=== PATIENT | female | born 1945 | race Caucasian/White ===

== ENCOUNTER → 2019-02-22 | Outpatient (CLI) | payer MEDICARE ==
[~2019-02-22] MED LIST: ASPIRIN ADULT L81 M1 PO; CEFTIN500 MG PO; CO Q-1010 M1 PO; CO Q-1050 MG PO; COUMADIN4 M1 PO; FISH OIL 10001000 MG PO; KEFLEX500 MG PO; LANTUS100 U/ML SC; NEXIUM20 MG PO; PRAVASTATIN SOD40 MG PO; PRILOSEC20 MG PO; PROGRAF1 MG PO; SYNTHROID0.075 MG PO; ULTRAM50 MG PO; VICO10300 PO; VITAMIN E PO; ZOFRAN ODT4 MG SL; [UNRECOGNIZED DRUG - OTHER]; [UNRECOGNIZED DRUG - REMARK]
== END | disposition home or self-care (01) ==
LOC: WOUNDCARE 07:59
DX: E11.621 Type 2 diabetes mellitus with foot ulcer (principal); L97.512 Non-pressure chronic ulcer of other part of right foot with fat layer exposed; E11.51 Type 2 diabetes mellitus with diabetic peripheral angiopathy without gangrene; E11.22 Type 2 diabetes mellitus with diabetic chronic kidney disease; N18.9 Chronic kidney disease, unspecified; I13.10 Hypertensive heart and chronic kidney disease without heart failure, with stage 1 through stage 4 chronic kidney disease, or unspecified chronic kidney disease; Z94.4 Liver transplant status; Z95.1 Presence of aortocoronary bypass graft; Z89.411 Acquired absence of right great toe; Z89.421 Acquired absence of other right toe(s)

== ENCOUNTER → 2019-03-22 | Outpatient (CLI) | payer MEDICARE | END | disposition home or self-care (01) | LOC: WOUNDCARE 00:49 | DX: E11.621 Type 2 diabetes mellitus with foot ulcer (principal); L97.512 Non-pressure chronic ulcer of other part of right foot with fat layer exposed; E11.51 Type 2 diabetes mellitus with diabetic peripheral angiopathy without gangrene; E11.22 Type 2 diabetes mellitus with diabetic chronic kidney disease; I12.9 Hypertensive chronic kidney disease with stage 1 through stage 4 chronic kidney disease, or unspecified chronic kidney disease; N18.9 Chronic kidney disease, unspecified; Z94.4 Liver transplant status; Z86.73 Personal history of transient ischemic attack (TIA), and cerebral infarction without residual deficits; Z89.411 Acquired absence of right great toe; Z89.421 Acquired absence of other right toe(s) ==

== ENCOUNTER → 2019-03-29 | Outpatient (CLI) | payer MEDICARE | END | disposition home or self-care (01) | LOC: WOUNDCARE 00:37 | DX: E11.621 Type 2 diabetes mellitus with foot ulcer (principal); L97.512 Non-pressure chronic ulcer of other part of right foot with fat layer exposed; E11.51 Type 2 diabetes mellitus with diabetic peripheral angiopathy without gangrene; E11.22 Type 2 diabetes mellitus with diabetic chronic kidney disease; I12.9 Hypertensive chronic kidney disease with stage 1 through stage 4 chronic kidney disease, or unspecified chronic kidney disease; N18.9 Chronic kidney disease, unspecified; Z94.4 Liver transplant status; Z86.73 Personal history of transient ischemic attack (TIA), and cerebral infarction without residual deficits ==

== ENCOUNTER → 2019-04-18 | Outpatient (CLI) | payer MEDICARE | END | disposition home or self-care (01) | LOC: WOUNDCARE 09:32 | DX: E11.621 Type 2 diabetes mellitus with foot ulcer (principal); L97.512 Non-pressure chronic ulcer of other part of right foot with fat layer exposed; E11.51 Type 2 diabetes mellitus with diabetic peripheral angiopathy without gangrene; E11.22 Type 2 diabetes mellitus with diabetic chronic kidney disease; I12.9 Hypertensive chronic kidney disease with stage 1 through stage 4 chronic kidney disease, or unspecified chronic kidney disease; N18.9 Chronic kidney disease, unspecified; Z86.73 Personal history of transient ischemic attack (TIA), and cerebral infarction without residual deficits; Z89.411 Acquired absence of right great toe; Z94.4 Liver transplant status; Z89.421 Acquired absence of other right toe(s) ==

== ENCOUNTER → 2019-04-19 | Outpatient (CLI) | payer MEDICARE ==
[2019-04-19 16:44] LABS: BASO # 0.1 10*3/uL (0.0-0.1); BASO % 0.5 % (0.0-1.0); EOS # 0.6 10*3/uL (0.0-0.4); EOS % 5.2 % (1.0-4.0); HEMATOCRIT 33.9 % (37.0-47.0); HEMOGLOBIN 10.8 g/dl (12.0-16.0); LYMPH % 26.6 % (27.0-41.0); MEAN CELL VOLUME 95.8 fl (81.0-99.0); MEAN CORPUSCULAR HGB 30.5 pg (27.0-31.0); MEAN CORPUSCULAR HGB CONC 31.9 g/dl (33.0-37.0); MEAN PLATELET VOLUME 11.1 fl (9.6-12.3); MONO # 0.5 10*3/uL (0.1-1.0); MONO % 4.2 % (3.0-9.0); NEUT # 7.2 10*3/uL (2.3-7.9); PLATELET COUNT AUTOMATED 340 10*3/uL (130-400); RED BLOOD COUNT 3.54 10*6/uL (4.10-5.10); RED CELL DISTRI WIDTH 12.9 % (0-14.5); WHITE BLOOD COUNT 11.4 10*3/uL (4.8-10.8)
[2019-04-19 17:05] LABS: ALBUMIN 3.3 gm/dl (3.1-4.5); CREATININE 2.96 mg/dL (0.55-1.02); POTASSIUM 5.8 mmol/L (3.5-5.1); TOTAL PROTEIN 7.2 gm/dL (6.4-8.2)
== END | disposition home or self-care (01) ==
LOC: LAB 15:12
PROVIDERS: Specialist
DX: E83.40 Disorders of magnesium metabolism, unspecified (principal); Z94.4 Liver transplant status; Z79.899 Other long term (current) drug therapy

== ENCOUNTER → 2019-04-26 | Outpatient (CLI) | payer MEDICARE | END | disposition home or self-care (01) | LOC: WOUNDCARE 08:26 | DX: E11.621 Type 2 diabetes mellitus with foot ulcer (principal); L97.512 Non-pressure chronic ulcer of other part of right foot with fat layer exposed; E11.51 Type 2 diabetes mellitus with diabetic peripheral angiopathy without gangrene; E11.22 Type 2 diabetes mellitus with diabetic chronic kidney disease; I12.9 Hypertensive chronic kidney disease with stage 1 through stage 4 chronic kidney disease, or unspecified chronic kidney disease; N18.9 Chronic kidney disease, unspecified; Z86.73 Personal history of transient ischemic attack (TIA), and cerebral infarction without residual deficits; Z89.411 Acquired absence of right great toe; Z94.4 Liver transplant status; Z89.421 Acquired absence of other right toe(s) ==

== ENCOUNTER → 2019-05-25 | Outpatient (CLI) | payer MEDICARE ==
[2019-05-25 10:22] LABS: URINE CREATININE RANDOM 72.8 mg/dL
[2019-05-25 10:42] LABS: ALBUMIN 3.4 gm/dl (3.1-4.5); CREATININE 2.09 mg/dL (0.55-1.02); PHOSPHOROUS 3.4 mg/dL (2.5-4.9); POTASSIUM 4.9 mmol/L (3.5-5.1)
[2019-05-25 11:39] LABS: FERRITIN 51.2 ng/mL (10.0-291.0); PTH INTACT 171.2 pg/mL (18.5-88.0); VITAMIN D, 25-HYDROXY 18.7 ng/mL (30-100)
[2019-05-26 11:06] LABS: CREATININE,URINE 67.6 mg/dL (Not Estab.); MICRO ALBUMIN/CRE RATIO 1661.7 (0.0-30.0)
== END | disposition home or self-care (01) ==
LOC: LAB 09:33
PROVIDERS: Internal Medicine Nephrology
DX: E78.5 Hyperlipidemia, unspecified (principal); N18.4 Chronic kidney disease, stage 4 (severe)

== ENCOUNTER → 2019-06-06 | Outpatient (CLI) | payer MEDICARE | END | disposition home or self-care (01) | LOC: US 01:09 | DX: I12.9 Hypertensive chronic kidney disease with stage 1 through stage 4 chronic kidney disease, or unspecified chronic kidney disease (principal); N18.4 Chronic kidney disease, stage 4 (severe); E11.22 Type 2 diabetes mellitus with diabetic chronic kidney disease; E78.5 Hyperlipidemia, unspecified ==

== ENCOUNTER → 2019-08-24 | Outpatient (CLI) | payer MEDICARE ==
[2019-08-24 17:21] LABS: ALBUMIN 3.1 gm/dl (3.1-4.5); CREATININE 2.48 mg/dL (0.55-1.02); POTASSIUM 4.1 mmol/L (3.5-5.1); TOTAL PROTEIN 7.2 gm/dL (6.4-8.2)
[2019-08-24 17:27] LABS: THYROID STIM HORMONE (HS) 0.564 uIU/ml (0.358-4.75)
[2019-08-25 12:06] LABS: CREATININE,URINE 110.4 mg/dL (Not Estab.)
== END | disposition home or self-care (01) ==
LOC: LAB 16:01
PROVIDERS: Internal Medicine Endocrinology, Diabetes & Metabolism
DX: E78.2 Mixed hyperlipidemia (principal); E03.9 Hypothyroidism, unspecified; E11.65 Type 2 diabetes mellitus with hyperglycemia

== ENCOUNTER → 2019-10-19 | Outpatient (CLI) | payer MEDICARE ==
[2019-10-19 12:32] LABS: BASO # 0.1 10*3/uL (0.0-0.1); BASO % 0.7 % (0.0-1.0); EOS # 0.5 10*3/uL (0.0-0.4); EOS % 5.5 % (1.0-4.0); HEMATOCRIT 41.5 % (37.0-47.0); HEMOGLOBIN 13.4 g/dl (12.0-16.0); LYMPH # 3.1 10*3/uL (1.3-4.4); LYMPH % 32.2 % (27.0-41.0); MEAN CELL VOLUME 89.2 fl (81.0-99.0); MEAN CORPUSCULAR HGB 28.8 pg (27.0-31.0); MEAN CORPUSCULAR HGB CONC 32.3 g/dl (33.0-37.0); MEAN PLATELET VOLUME 10.7 fl (9.6-12.3); MONO # 0.5 10*3/uL (0.1-1.0); MONO % 4.9 % (3.0-9.0); NEUT # 5.3 10*3/uL (2.3-7.9); NEUT % 56.3 % (47.0-73.0); PLATELET COUNT AUTOMATED 304 10*3/uL (130-400); RED BLOOD COUNT 4.65 10*6/uL (4.10-5.10); RED CELL DISTRI WIDTH 13.3 % (0-14.5); WHITE BLOOD COUNT 9.5 10*3/uL (4.8-10.8)
[2019-10-19 12:59] LABS: ALBUMIN 3.1 gm/dl (3.1-4.5); CREATININE 2.15 mg/dL (0.55-1.02); POTASSIUM 4.2 mmol/L (3.5-5.1); TOTAL PROTEIN 7.2 gm/dL (6.4-8.2)
== END | disposition home or self-care (01) ==
LOC: LAB 11:40
PROVIDERS: Specialist
DX: E83.40 Disorders of magnesium metabolism, unspecified (principal); Z79.899 Other long term (current) drug therapy

== ENCOUNTER 2019-11-05 11:02 | Emergency (ER) | payer MEDICARE ==
[~2019-11-05] VITALS: Ht 160 cm; Wt 79.8 kg
== END 2019-11-05 14:56 | disposition home or self-care (01) ==
LOC: ED 11:02
DX: M79.671 Pain in right foot (principal); R20.0 Anesthesia of skin; E11.43 Type 2 diabetes mellitus with diabetic autonomic (poly)neuropathy; M86.9 Osteomyelitis, unspecified; I10 Essential (primary) hypertension; K21.9 Gastro-esophageal reflux disease without esophagitis; I25.10 Atherosclerotic heart disease of native coronary artery without angina pectoris; Z79.899 Other long term (current) drug therapy; Z79.82 Long term (current) use of aspirin; Z91.041 Radiographic dye allergy status; Z79.4 Long term (current) use of insulin; Z79.01 Long term (current) use of anticoagulants; X58.XXXA Exposure to other specified factors, initial encounter; Y93.89 Activity, other specified; Y92.89 Other specified places as the place of occurrence of the external cause; Y99.8 Other external cause status

== ENCOUNTER → 2019-11-25 | Outpatient (CLI) | payer MEDICARE ==
[2019-11-25 12:43] LABS: BASO # 0.1 10*3/uL (0.0-0.1); BASO % 0.6 % (0.0-1.0); EOS # 0.4 10*3/uL (0.0-0.4); EOS % 5.3 % (1.0-4.0); HEMATOCRIT 37.1 % (37.0-47.0); HEMOGLOBIN 11.8 g/dl (12.0-16.0); LYMPH # 2.6 10*3/uL (1.3-4.4); LYMPH % 32.8 % (27.0-41.0); MEAN CELL VOLUME 92.3 fl (81.0-99.0); MEAN CORPUSCULAR HGB 29.4 pg (27.0-31.0); MEAN CORPUSCULAR HGB CONC 31.8 g/dl (33.0-37.0); MONO # 0.5 10*3/uL (0.1-1.0); MONO % 5.6 % (3.0-9.0); NEUT # 4.4 10*3/uL (2.3-7.9); NEUT % 55.1 % (47.0-73.0); PLATELET COUNT AUTOMATED 271 10*3/uL (130-400); RED BLOOD COUNT 4.02 10*6/uL (4.10-5.10); RED CELL DISTRI WIDTH 13.2 % (0-14.5)
[2019-11-25 13:02] LABS: CREATININE 2.51 mg/dL (0.55-1.02); TOTAL PROTEIN 6.5 gm/dL (6.4-8.2)
== END | disposition home or self-care (01) ==
LOC: LAB 11:48
PROVIDERS: Specialist
DX: E83.40 Disorders of magnesium metabolism, unspecified (principal); Z94.4 Liver transplant status; Z79.899 Other long term (current) drug therapy; N18.4 Chronic kidney disease, stage 4 (severe)

== ENCOUNTER → 2019-12-23 | Outpatient (CLI) | payer MEDICARE ==
[~2019-12-23] MED LIST changes: +PREDNISONE20 M1 PO; +PROVENTIL HFA6.7 GM INH; +VIBRAMYCIN100 MG PO
[2019-12-23 16:06] LABS: BASO # 0.1 10*3/uL (0.0-0.1); BASO % 0.6 % (0.0-1.0); EOS % 11.4 % (1.0-4.0); HEMATOCRIT 40.7 % (37.0-47.0); HEMOGLOBIN 13.1 g/dl (12.0-16.0); LYMPH # 2.9 10*3/uL (1.3-4.4); MEAN CELL VOLUME 93.6 fl (81.0-99.0); MEAN CORPUSCULAR HGB 30.1 pg (27.0-31.0); MEAN CORPUSCULAR HGB CONC 32.2 g/dl (33.0-37.0); MEAN PLATELET VOLUME 10.8 fl (9.6-12.3); MONO # 0.5 10*3/uL (0.1-1.0); NEUT # 4.1 10*3/uL (2.3-7.9); NEUT % 47.5 % (47.0-73.0); PLATELET COUNT AUTOMATED 246 10*3/uL (130-400); RED BLOOD COUNT 4.35 10*6/uL (4.10-5.10); RED CELL DISTRI WIDTH 13.1 % (0-14.5); WHITE BLOOD COUNT 8.5 10*3/uL (4.8-10.8)
[2019-12-23 16:17] LABS: CREATININE 2.85 mg/dL (0.55-1.02); POTASSIUM 4.2 mmol/L (3.5-5.1)
[2019-12-23 16:21] LABS: ALBUMIN 3.2 gm/dl (3.1-4.5)
[2019-12-23 16:26] LABS: BILIRUBIN NEGATIVE (NEGATIVE); BLOOD 1+ (NEGATIVE); CLARITY CLEAR (CLEAR); COLOR YELLOW (YELLOW); GLUCOSE 1+ (NEGATIVE); KETONE NEGATIVE (NEGATIVE); LEUKO ESTERASE NEGATIVE (NEGATIVE); NITRITE NEGATIVE (NEGATIVE); PH 5.5 (5.0-9.0); SPECIFIC GRAVITY 1.025 (1.005-1.030); UROBILINOGEN 0.2 E.U./dl (0.2-1.0)
[2019-12-23 16:34] LABS: BACTERIA TRACE
[2019-12-23 16:35] LABS: FINE GRANULAR CAST 0-2; HYALINE CAST 0-2
== END | disposition home or self-care (01) ==
LOC: LAB 15:39
PROVIDERS: Internal Medicine Nephrology; Specialist
DX: E11.22 Type 2 diabetes mellitus with diabetic chronic kidney disease (principal); N18.4 Chronic kidney disease, stage 4 (severe); E87.5 Hyperkalemia; E78.2 Mixed hyperlipidemia; Z94.4 Liver transplant status

== ENCOUNTER 2019-12-25 15:00 | Emergency (ER) | payer MEDICARE ==
[~2019-12-25] VITALS: Ht 160 cm; Wt 80.7 kg
[~2019-12-25 15:00] MED LIST changes: -PREDNISONE20 M1 PO; -PROVENTIL HFA6.7 GM INH; -VIBRAMYCIN100 MG PO
[2019-12-25] MEDS ORDERED: PROVENTIL HFA6.7 GM INH (17:34)
[2019-12-25] MEDS ORDERED: PREDNISONE20 M1 PO (17:34)
[2019-12-25] MEDS ORDERED: VIBRAMYCIN100 MG PO (17:34)
== END 2019-12-25 17:47 | disposition home or self-care (01) ==
LOC: ED 15:00
DX: J32.9 Chronic sinusitis, unspecified (principal); J40 Bronchitis, not specified as acute or chronic; R11.2 Nausea with vomiting, unspecified; R19.7 Diarrhea, unspecified; I10 Essential (primary) hypertension; K21.9 Gastro-esophageal reflux disease without esophagitis; I25.10 Atherosclerotic heart disease of native coronary artery without angina pectoris; E11.40 Type 2 diabetes mellitus with diabetic neuropathy, unspecified; Z86.73 Personal history of transient ischemic attack (TIA), and cerebral infarction without residual deficits; Z94.4 Liver transplant status; Z91.041 Radiographic dye allergy status; Z79.899 Other long term (current) drug therapy; Z79.01 Long term (current) use of anticoagulants; Z79.82 Long term (current) use of aspirin; Z98.61 Coronary angioplasty status

== ENCOUNTER → 2020-01-02 | Outpatient (CLI) | payer MEDICARE ==
[~2020-01-02] MED LIST changes: +PREDNISONE20 M1 PO; +PROVENTIL HFA6.7 GM INH; +VIBRAMYCIN100 MG PO
[2020-01-02 14:05] LABS: CREATININE 2.51 mg/dL (0.55-1.02); POTASSIUM 4.3 mmol/L (3.5-5.1)
== END | disposition home or self-care (01) ==
LOC: LAB 13:05
PROVIDERS: Internal Medicine Nephrology
DX: N18.4 Chronic kidney disease, stage 4 (severe) (principal)

== ENCOUNTER → 2020-01-10 | Outpatient (CLI) | payer MEDICARE ==
[2020-01-10 09:12] LABS: HEMATOCRIT 34.2 % (37.0-47.0); HEMOGLOBIN 10.9 g/dl (12.0-16.0)
[2020-01-10 09:53] LABS: POTASSIUM 4.5 mmol/L (3.5-5.1)
[2020-01-10 10:03] LABS: CREATININE 2.25 mg/dL (0.55-1.02)
== END | disposition home or self-care (01) ==
LOC: LAB 08:01
PROVIDERS: Internal Medicine Nephrology
DX: N18.4 Chronic kidney disease, stage 4 (severe) (principal); E78.5 Hyperlipidemia, unspecified

== ENCOUNTER 2020-04-23 18:15 | Emergency (ER) | payer MEDICARE ==
[~2020-04-23] VITALS: Ht 160 cm; Wt 80.7 kg
[2020-04-23] MEDS ORDERED: PREDNISONE20 M1 PO (19:31)
[2020-04-23] MEDS ORDERED: KENALOG 0.5% CR15 GM T (19:31)
== END 2020-04-23 19:50 | disposition home or self-care (01) ==
LOC: ED 18:15
DX: L25.9 Unspecified contact dermatitis, unspecified cause (principal); E11.9 Type 2 diabetes mellitus without complications; I10 Essential (primary) hypertension; I25.10 Atherosclerotic heart disease of native coronary artery without angina pectoris; Z91.041 Radiographic dye allergy status; Z79.899 Other long term (current) drug therapy; Z79.82 Long term (current) use of aspirin; Z79.01 Long term (current) use of anticoagulants

== ENCOUNTER → 2020-04-26 | Outpatient (CLI) | payer MEDICARE ==
[~2020-04-26] MED LIST changes: +DOXYCYCLINE100 M3 PO; +KENALOG 0.5% CR15 GM T
[2020-04-26 15:09] LABS: BASO % 0.1 % (0.0-1.0); HEMATOCRIT 37.1 % (37.0-47.0); LYMPH # 2.3 10*3/uL (1.3-4.4); LYMPH % 14.6 % (27.0-41.0); MEAN CELL VOLUME 92.1 fl (81.0-99.0); MEAN CORPUSCULAR HGB 29.8 pg (27.0-31.0); MEAN CORPUSCULAR HGB CONC 32.3 g/dl (33.0-37.0); MEAN PLATELET VOLUME 11.6 fl (9.6-12.3); MONO # 0.7 10*3/uL (0.1-1.0); MONO % 4.3 % (3.0-9.0); NEUT # 12.8 10*3/uL (2.3-7.9); PLATELET COUNT AUTOMATED 264 10*3/uL (130-400); RED BLOOD COUNT 4.03 10*6/uL (4.10-5.10); RED CELL DISTRI WIDTH 13.2 % (0-14.5); WHITE BLOOD COUNT 15.9 10*3/uL (4.8-10.8)
[2020-04-26 15:36] LABS: ALBUMIN 3.4 gm/dl (3.1-4.5); CREATININE 3.14 mg/dL (0.55-1.02); POTASSIUM 4.3 mmol/L (3.5-5.1); TOTAL PROTEIN 7.5 gm/dL (6.4-8.2)
== END | disposition home or self-care (01) ==
LOC: LAB 14:38
PROVIDERS: Specialist
DX: Z94.4 Liver transplant status (principal); Z79.899 Other long term (current) drug therapy

== ENCOUNTER 2020-04-29 21:53 | Emergency (ER) | payer MEDICARE ==
[~2020-04-29] VITALS: Ht 161.2 cm; Wt 80.7 kg
[~2020-04-29 21:53] MED LIST changes: -DOXYCYCLINE100 M3 PO
[2020-04-29] MEDS ORDERED: DOXYCYCLINE100 M3 PO (22:10)
== END 2020-04-29 23:34 | disposition home or self-care (01) ==
LOC: ED 21:53
DX: L02.01 Cutaneous abscess of face (principal); I10 Essential (primary) hypertension; E11.9 Type 2 diabetes mellitus without complications; K21.9 Gastro-esophageal reflux disease without esophagitis; I25.10 Atherosclerotic heart disease of native coronary artery without angina pectoris; Z79.899 Other long term (current) drug therapy; Z79.4 Long term (current) use of insulin; Z79.82 Long term (current) use of aspirin

== ENCOUNTER → 2020-05-11 | Outpatient (CLI) | payer MEDICARE ==
[~2020-05-11] MED LIST changes: +DOXYCYCLINE100 M3 PO
[2020-05-11 13:24] LABS: BASO # 0.1 10*3/uL (0.0-0.1); BASO % 0.6 % (0.0-1.0); EOS # 0.6 10*3/uL (0.0-0.4); EOS % 6.3 % (1.0-4.0); HEMATOCRIT 34.2 % (37.0-47.0); LYMPH # 2.7 10*3/uL (1.3-4.4); LYMPH % 29.8 % (27.0-41.0); MEAN CELL VOLUME 94.5 fl (81.0-99.0); MEAN CORPUSCULAR HGB 29.8 pg (27.0-31.0); MEAN CORPUSCULAR HGB CONC 31.6 g/dl (33.0-37.0); MEAN PLATELET VOLUME 11.2 fl (9.6-12.3); MONO # 0.4 10*3/uL (0.1-1.0); MONO % 4.9 % (3.0-9.0); NEUT # 5.1 10*3/uL (2.3-7.9); NEUT % 57.6 % (47.0-73.0); PLATELET COUNT AUTOMATED 262 10*3/uL (130-400); RED BLOOD COUNT 3.62 10*6/uL (4.10-5.10); RED CELL DISTRI WIDTH 13.9 % (0-14.5); WHITE BLOOD COUNT 8.9 10*3/uL (4.8-10.8)
[2020-05-11 13:48] LABS: ALBUMIN 2.9 gm/dl (3.1-4.5); CREATININE 3.04 mg/dL (0.55-1.02); INTERNATIONAL NORM RATIO 1.1 (2.0-3.5)
== END | disposition home or self-care (01) ==
LOC: LAB 12:52
PROVIDERS: Specialist
DX: Z94.4 Liver transplant status (principal)

== ENCOUNTER → 2020-05-21 | Outpatient (CLI) | payer MEDICARE ==
[2020-05-21 11:50] LABS: BASO % 0.5 % (0.0-1.0); EOS # 0.7 10*3/uL (0.0-0.4); HEMATOCRIT 35.5 % (37.0-47.0); LYMPH # 2.7 10*3/uL (1.3-4.4); LYMPH % 36.5 % (27.0-41.0); MEAN CELL VOLUME 93.2 fl (81.0-99.0); MEAN CORPUSCULAR HGB 29.4 pg (27.0-31.0); MEAN CORPUSCULAR HGB CONC 31.5 g/dl (33.0-37.0); MEAN PLATELET VOLUME 11.5 fl (9.6-12.3); MONO # 0.4 10*3/uL (0.1-1.0); MONO % 5.8 % (3.0-9.0); NEUT # 3.6 10*3/uL (2.3-7.9); NEUT % 47.8 % (47.0-73.0); PLATELET COUNT AUTOMATED 249 10*3/uL (130-400); RED BLOOD COUNT 3.81 10*6/uL (4.10-5.10); RED CELL DISTRI WIDTH 13.6 % (0-14.5); WHITE BLOOD COUNT 7.4 10*3/uL (4.8-10.8)
[2020-05-21 12:11] LABS: ALBUMIN 3.2 gm/dl (3.1-4.5); CREATININE 3.07 mg/dL (0.55-1.02); POTASSIUM 4.7 mmol/L (3.5-5.1)
== END | disposition home or self-care (01) ==
LOC: LAB 11:14
PROVIDERS: Internal Medicine Nephrology
DX: N18.4 Chronic kidney disease, stage 4 (severe) (principal); E61.1 Iron deficiency

== ENCOUNTER → 2020-06-07 | Outpatient (CLI) | payer MEDICARE ==
[2020-06-07 16:08] LABS: ALBUMIN 3.2 gm/dl (3.1-4.5); CREATININE 2.68 mg/dL (0.55-1.02); POTASSIUM 4.3 mmol/L (3.5-5.1)
== END | disposition home or self-care (01) ==
LOC: LAB 14:57
PROVIDERS: Internal Medicine Nephrology
DX: N18.4 Chronic kidney disease, stage 4 (severe) (principal)

== ENCOUNTER → 2020-06-25 | Outpatient (CLI) | payer MEDICARE ==
[2020-06-25 11:15] LABS: CREATININE 3.07 mg/dL (0.55-1.02); POTASSIUM 4.4 mmol/L (3.5-5.1)
== END | disposition home or self-care (01) ==
LOC: LAB 10:22
PROVIDERS: Internal Medicine Nephrology
DX: N18.4 Chronic kidney disease, stage 4 (severe) (principal)

== ENCOUNTER → 2020-07-16 | Outpatient (CLI) | payer MEDICARE | END | disposition home or self-care (01) | LOC: US 01:02 | PROVIDERS: ATTEND Physician Assistant Medical | DX: K76.0 Fatty (change of) liver, not elsewhere classified (principal); N28.89 Other specified disorders of kidney and ureter; Z94.4 Liver transplant status ==

== ENCOUNTER → 2020-08-06 | Outpatient (CLI) | payer MEDICARE ==
[2020-08-06 11:08] LABS: BASO # 0.1 10*3/uL (0.0-0.1); BASO % 0.5 % (0.0-1.0); EOS # 0.7 10*3/uL (0.0-0.4); HEMATOCRIT 34.2 % (37.0-47.0); LYMPH # 3.7 10*3/uL (1.3-4.4); LYMPH % 32.8 % (27.0-41.0); MEAN CORPUSCULAR HGB 29.7 pg (27.0-31.0); MEAN CORPUSCULAR HGB CONC 31.6 g/dl (33.0-37.0); MEAN PLATELET VOLUME 11.7 fl (9.6-12.3); MONO # 0.5 10*3/uL (0.1-1.0); MONO % 4.7 % (3.0-9.0); NEUT # 6.3 10*3/uL (2.3-7.9); NEUT % 55.3 % (47.0-73.0); PLATELET COUNT AUTOMATED 253 10*3/uL (130-400); RED BLOOD COUNT 3.64 10*6/uL (4.10-5.10); RED CELL DISTRI WIDTH 13.2 % (0-14.5); WHITE BLOOD COUNT 11.4 10*3/uL (4.8-10.8)
[2020-08-06 11:11] LABS: POTASSIUM 4.2 mmol/L (3.5-5.1)
[2020-08-06 11:22] LABS: ALBUMIN 3.4 gm/dl (3.1-4.5); CREATININE 3.09 mg/dL (0.55-1.02); INTERNATIONAL NORM RATIO 1.1 (2.0-3.5); TOTAL PROTEIN 7.5 gm/dL (6.4-8.2)
[2020-08-07 09:09] LABS: IRON 70 ug/dL (50-170); TOTAL IRON BINDING CAPACITY 257 ug/dl (250-450)
== END | disposition home or self-care (01) ==
LOC: LAB 10:15
PROVIDERS: Specialist; ATTEND Internal Medicine Nephrology
DX: N18.4 Chronic kidney disease, stage 4 (severe) (principal); Z94.4 Liver transplant status

== ENCOUNTER → 2020-08-27 | Outpatient (CLI) | payer MEDICARE ==
[2020-08-27 14:21] LABS: ALBUMIN 3.4 gm/dl (3.1-4.5); CREATININE 3.33 mg/dL (0.55-1.02); FREE T4 1.06 ng/dl (0.76-1.46); POTASSIUM 5.2 mmol/L (3.5-5.1); TOTAL PROTEIN 7.4 gm/dL (6.4-8.2)
[2020-08-27 14:26] LABS: THYROID STIM HORMONE (HS) 5.33 uIU/ml (0.358-4.75)
[2020-08-27 15:36] LABS: FERRITIN 244.4 ng/mL (10.0-291.0)
[2020-08-28 08:11] LABS: LDL CHOLESTEROL (DIRECT) 119 mg/dL (0-99)
[2020-08-28 14:08] LABS: t-TRANSGLUTAMINASE (tTG) IGA <2 U/mL (0-3); t-TRANSGLUTAMINASE (tTG) IgG <2 U/mL (0-5)
== END | disposition home or self-care (01) ==
LOC: LAB 13:19
PROVIDERS: ATTEND Internal Medicine Endocrinology, Diabetes & Metabolism
DX: E11.65 Type 2 diabetes mellitus with hyperglycemia (principal); E03.9 Hypothyroidism, unspecified; E78.2 Mixed hyperlipidemia; R91.8 Other nonspecific abnormal finding of lung field; N18.4 Chronic kidney disease, stage 4 (severe); D64.9 Anemia, unspecified

== ENCOUNTER 2020-10-27 09:41 | Emergency (ER) | payer MEDICARE ==
[~2020-10-27] VITALS: Wt 761.1 kg
[2020-10-27 10:27] LABS: BASO % 0.3 % (0.0-1.0); HEMATOCRIT 26.9 % (37.0-47.0); LYMPH # 2.6 10*3/uL (1.3-4.4); LYMPH % 21.7 % (27.0-41.0); MEAN CELL VOLUME 96.4 fl (81.0-99.0); MEAN CORPUSCULAR HGB 30.5 pg (27.0-31.0); MEAN CORPUSCULAR HGB CONC 31.6 g/dl (33.0-37.0); MEAN PLATELET VOLUME 11.4 fl (9.6-12.3); MONO # 0.6 10*3/uL (0.1-1.0); MONO % 5.3 % (3.0-9.0); NEUT # 8.6 10*3/uL (2.3-7.9); NEUT % 71.5 % (47.0-73.0); PLATELET COUNT AUTOMATED 211 10*3/uL (130-400); RED BLOOD COUNT 2.79 10*6/uL (4.10-5.10); RED CELL DISTRI WIDTH 14.3 % (0-14.5)
[2020-10-27 10:42] LABS: CREATININE 3.17 mg/dL (0.55-1.02); TOTAL PROTEIN 6.5 gm/dL (6.4-8.2); TROPONIN I 0.016 ng/ml (<0.045)
[2020-10-27 10:45] LABS: ACT PARTIAL THROMBO TIME 29.9 SECONDS (20.0-32.1); INTERNATIONAL NORM RATIO 1.1 (2.0-3.5)
[2020-10-27 11:20] LABS: ABG BASE EXCESS 2.2 mmol/L (-2.0-2.0); ARTERIAL BLOOD GAS PH 7.409 (7.35-7.45)
== END 2020-10-27 13:00 | disposition home or self-care (01) ==
LOC: ED 09:41
PROVIDERS: Emergency Medicine
DX: U07.1 COVID-19 (principal); J18.9 Pneumonia, unspecified organism; J96.01 Acute respiratory failure with hypoxia; I25.10 Atherosclerotic heart disease of native coronary artery without angina pectoris; I12.0 Hypertensive chronic kidney disease with stage 5 chronic kidney disease or end stage renal disease; E11.22 Type 2 diabetes mellitus with diabetic chronic kidney disease; N18.5 Chronic kidney disease, stage 5; Z99.2 Dependence on renal dialysis; Z91.041 Radiographic dye allergy status; Z79.899 Other long term (current) drug therapy

== ENCOUNTER 2020-10-31 14:22 | Inpatient (IN) | payer MEDICARE ==
[~2020-10-31] VITALS: Ht 160 cm; Wt 66.2 kg
[2020-10-31 14:22] VITALS: BP 123/46
[2020-10-31 15:56] LABS: HEMATOCRIT 29.7 % (37.0-47.0); MEAN CELL VOLUME 96.7 fl (81.0-99.0); MEAN PLATELET VOLUME 11.7 fl (9.6-12.3); PLATELET COUNT AUTOMATED 311 10*3/uL (130-400); RED BLOOD COUNT 3.07 10*6/uL (4.10-5.10); RED CELL DISTRI WIDTH 14.1 % (0-14.5)
[2020-10-31 16:03] VITALS: BP 132/50
[2020-10-31 16:09] LABS: INTERNATIONAL NORM RATIO 1.1 (2.0-3.5)
[2020-10-31 16:12] LABS: BUN 34 mg/dl (7-24); CHLORIDE 100 mmol/L (98-107); CREATININE 2.05 mg/dL (0.55-1.02); POTASSIUM 4.2 mmol/L (3.5-5.1); SODIUM 135 mmol/L (136-145); TOTAL CELLS COUNTED 100 #CELLS
[2020-10-31 16:13] LABS: PLATELET SUFFICIENCY NORMAL (NORMAL)
[2020-10-31 16:15] LABS: TROPONIN I < 0.015 ng/ml (<0.045)
[2020-10-31] MEDS ORDERED: PLAVIX75 M1 PO (17:33)
[2020-10-31] MEDS ORDERED: EUTHYROX112 MCG PO (17:34)
[2020-10-31] MEDS ORDERED: ELIQUIS5 M1 PO (17:34)
[2020-10-31 18:24] VITALS: BP 128/51
--- NOTE | 2020-10-31 18:30 | NUR ---
Discharge instructions reviewed with patient/family. Patient receptive and verbalizes understanding. Follow-up care arranged. Written instructions given to patient/family. REPORT GIVEN TO SHAGGY BARILLAS ). PATIENT'S HEPLOCK DISCOTNINUED AND FINISHING POWDER PRESS OPERATOR REMOVED. DISCHARGED BY [facility]. NICK OLIVERA
--- NOTE | 2020-10-31 18:45 | NUR ---
A 75, admitted to , under the services of LUIS Caceres DO with a diagnosis of PNEUMONIA DUE TO COVID-19. Chief complaint is SHORTNESS OF BREATH, HYPOXIA. Patient arrived via bed from ER. Monitor applied. Initial assessment completed. Vital signs taken and recorded. LUIS CACERES DO notified of admission to the unit. Orders received. See assessment for past medical history, medications and allergies. Patient and/or family oriented to unit. [facility] visitation policy reviewed. Clothing/patient valuable form completed. NICK OLIVERA
--- NOTE | 2020-10-31 19:02 | NUR ---
PATIENT DENIES ANY WOUNDS AND REFUSED WOUND ASSESSMENT. SMALL BANDAID WITH ABRASION UNDERNEATH ON RIGHT FOOT. PT STATES THAT THEY BUMPED HER TOE AT DIALYSIS.
[2020-10-31 20:00] VITALS: BP 124/55; BP 135/46
[2020-10-31] MEDS ORDERED: ACETAMINOPHEN325 M2 PO (20:28)
[2020-10-31] MEDS ORDERED: ATENOLOL25 MG PO (20:30)
[2020-10-31] MEDS ORDERED: ROCALTROL0.5 MC1 PO (20:33)
[2020-10-31] MEDS ORDERED: DECADRON6 M1 PO (20:34)
[2020-10-31] MEDS ORDERED: LANTUS SOL100 UNIT/1 SC (20:35)
[2020-10-31] MEDS ORDERED: HUMALOG100 UNIT/2 SC (20:37)
[2020-10-31] MEDS ORDERED: PRAVACHOL20 MG PO (20:39)
[2020-10-31] MEDS ORDERED: MIRALAX17 GM PO (20:39)
[2020-10-31] MEDS ORDERED: PREGABALIN150 MG PO (20:40)
[2020-10-31] MEDS ORDERED: SENNA8.6 MG PO (20:41)
[2020-10-31] MEDS ORDERED: TACROLIMUS1 MG PO (20:50)
[2020-10-31 21:02] LABS: ABG BASE EXCESS 1.9 mmol/L (-2.0-2.0); ARTERIAL BLOOD GAS PH 7.399 (7.35-7.45)
--- NOTE | 2020-10-31 21:50 | NUR ---
DR. [facility] ANSWERING SERVICE MADE AWARE OF NEW CONSULT.
--- NOTE | 2020-10-31 22:15 | NUR ---
NOTIFIED DR. VELOZ OF NEW CONSULT. STATED TO ORDER BIPAP AND REPEAT ABGS IN MORNING. ORDERS PLACED. WILL CONTINUE TO MONITOR.
--- NOTE | 2020-10-31 22:25 | NUR ---
PATIENT PLACED ON THE BIPAP BY RESPIRATORY, PATIENT VERY ANXIOUS, UNABLE TO TOELRATED BIPAP. EDUCATED PATIENT ON THE BENEFITS OF WEARING THE BIPAP VS HIGH FLOW NASAL CANNUILA. PATIENT STILL REFUSING. STATES SHE FEELS LIKE SHE IS SUFFOCATING. PATIENT PLACED BACK ON 8L HIGH FLOW NASAL CANNULA. PATIENT PULSE OX 95%. BED IN LOWEST POSITION,CALL LIGHT WITHIN REACH. WILL CONTINUE TO MONITOR.
[2020-11-01] VITALS: BP 150/55
--- NOTE | 2020-11-01 02:07 | NUR ---
PATIENT SLEEPING. NO SIGNS OF DISTRESS. 8L HIGH FLOW NASAL CANNULA INTACT. BED IN LOWEST POSITION,CALL LIGHT WITHIN REACH. BED ALARM ON. WILL CONTINUE TO MONITOR.
--- NOTE | 2020-11-01 05:57 | NUR ---
DR. CONTRERAS ANSWERING SERVICE MADE AWARE OF NEW CONSULT.
[2020-11-01 06:44] LABS: HEMATOCRIT 28.8 % (37.0-47.0); MEAN CELL VOLUME 98.6 fl (81.0-99.0); MEAN CORPUSCULAR HGB 30.5 pg (27.0-31.0); MEAN CORPUSCULAR HGB CONC 30.9 g/dl (33.0-37.0); MEAN PLATELET VOLUME 12.1 fl (9.6-12.3); PLATELET COUNT AUTOMATED 279 10*3/uL (130-400); RED BLOOD COUNT 2.92 10*6/uL (4.10-5.10); RED CELL DISTRI WIDTH 13.8 % (0-14.5); WHITE BLOOD COUNT 14.8 10*3/uL (4.8-10.8)
[2020-11-01 07:09] LABS: ABG BASE EXCESS 0.1 mmol/L (-2.0-2.0); ARTERIAL BLOOD GAS PH 7.39 (7.35-7.45)
[2020-11-01 07:10] LABS: ALBUMIN 2.3 gm/dl (3.1-4.5)
[2020-11-01 07:16] LABS: CREATININE 2.64 mg/dL (0.55-1.02); TOTAL PROTEIN 6.5 gm/dL (6.4-8.2)
[2020-11-01 07:44] LABS: ACT PARTIAL THROMBO TIME 35.8 SECONDS (20.0-32.1); INTERNATIONAL NORM RATIO 1.2 (2.0-3.5)
[2020-11-01 08:00] VITALS: BP 153/56
[2020-11-01 08:20] LABS: PLATELET SUFFICIENCY NORMAL (NORMAL); ROULEAUX SLIGHT; TOTAL CELLS COUNTED 100 #CELLS
--- NOTE | 2020-11-01 11:09 | NUR ---
OT NOTE Occupational therapy order and nursing screen received. Will follow up with patient for completion of an OT eval. Thank you. Lupe Ludwig, OTR/L
--- NOTE | 2020-11-01 11:48 | NUR ---
Patient [facility] positive covid from the snf facility testing. She was there as skilled; Faxed updated clinicals for review.
[2020-11-01 12:00] VITALS: BP 116/46
--- NOTE | 2020-11-01 12:00 | NUR ---
case management attempted to talk with patient via phone, no answer from patient. contated patient's daughter Ileana regarding discharge plan. Ileana stated patient was previously living at home alone and was independent in adls and ambulation until recently. Ileana stated her mom has been in and out of hospitals and in the middle of September was admitted to [facility] for shelter. daughter stated she would like patient to return to [facility] when stable for discharge from the hospital. Ileana stated patient was also in agreement with returning to the [facility]. case management will follow
--- NOTE | 2020-11-01 12:06 | NUR ---
patient is also a dialysis patient with a thursday, thursday, thursday schedule
--- NOTE | 2020-11-01 14:05 | NUR ---
OT NOTE Occupational therapy order received and chart reviewed. Patient is not appropriate for an OT evaluation at this time and is on hold per nursing. Will check back at a later date for completion of an OT eval. Thank you. Lupe Ludwig OTR/L
[2020-11-01 14:11] LABS: ABG BASE EXCESS -1.4 mmol/L (-2.0-2.0); ARTERIAL BLOOD GAS PH 7.351 (7.35-7.45)
--- NOTE | 2020-11-01 14:59 | NUR ---
PHYSICAL THERAPY PT order recieved and chart reviewed. Per nursing, pt is not appropriate for PT evaluation at this time. Will check back at a later time to determine if patient is appropriate for PT evaluation. Eva Smallwood PT DPT
--- NOTE | 2020-11-01 15:42 | NUR ---
PHYSICAL THERAPY Nursing screen received and reviewed. PT order has been received and chart reviewed. Pt was not appropriate for evaluation at this time, will check back to determine if pt is appropriate at a later time. Pt is on PT caseload. Thanks Eva Smallwood PT DPT
--- NOTE | 2020-11-01 15:43 | NUR ---
NOTIFIED OF BRADYCARDIA, STAT EKG ORDERED
[2020-11-01 16:00] VITALS: BP 123/48
[2020-11-01 16:05] LABS: HEMATOCRIT 28.6 % (37.0-47.0); MEAN CELL VOLUME 96.9 fl (81.0-99.0); MEAN CORPUSCULAR HGB 29.8 pg (27.0-31.0); MEAN CORPUSCULAR HGB CONC 30.8 g/dl (33.0-37.0); MEAN PLATELET VOLUME 12.1 fl (9.6-12.3); NUCLEATED RED BLOOD CELL 0.1 % (0.0-0.0); PLATELET COUNT AUTOMATED 318 10*3/uL (130-400); RED BLOOD COUNT 2.95 10*6/uL (4.10-5.10); WHITE BLOOD COUNT 14.2 10*3/uL (4.8-10.8)
[2020-11-01 16:21] LABS: ALBUMIN 2.3 gm/dl (3.1-4.5); CREATININE 2.93 mg/dL (0.55-1.02); POTASSIUM 5.3 mmol/L (3.5-5.1); TOTAL PROTEIN 6.7 gm/dL (6.4-8.2)
[2020-11-01 16:27] LABS: ATYPICAL LYMPHS 2 % (0-0); PLATELET SUFFICIENCY NORMAL (NORMAL); TOTAL CELLS COUNTED 100 #CELLS
--- NOTE | 2020-11-01 16:33 | NUR ---
NOTIFIED OF LACTIC ACID
--- NOTE | 2020-11-01 19:04 | NUR ---
NOTIFIED OF LACTIC ACID
[2020-11-01 20:00] VITALS: BP 129/39
--- NOTE | 2020-11-01 20:57 | NUR ---
DR. VELOZ CALLED IN. UPDATED HIM ON PATIENTS CONDITION AND CODE STATUS. PER DR. VELOZ OBTAIN ABG IN AM. ORDERS PLACED. WILL CONTINUE TO MONITOR.
--- NOTE | 2020-11-01 20:58 | NUR ---
PATIENT BLOOD SUGAR, 395. NO SLIDING SCALE ON FOR PATIENT. NOTIFIED. DR ROBINS. STATED HE WOULD PLACE NEW ORDERS. WILL CONTINUE TO MONITOR.
--- NOTE | 2020-11-01 21:39 | NUR ---
NOTIFIED DR. ROBINS OF CRITICAL LACTIC ACID, 2.2. NO NEW ORDERS RECEIVED. WILL CONTINUE TO MONITOR.
[2020-11-02] VITALS: BP 122/53
--- NOTE | 2020-11-02 03:08 | NUR ---
PATIENT RIPPED BIPAP OFF. REFUSING TO PUT BIPAP BACK ON. REFUSING NASAL CANNULA. PULSE OX 72%.
--- NOTE | 2020-11-02 03:10 | NUR ---
NOTIFIED DR. FLOR IS PATIENT IS RIPPING OFF BIPAP AND NASAL CANNULA. VERY AGIGATED. 0.5MG IV ATIVAN ORDERED.
--- NOTE | 2020-11-02 03:21 | NUR ---
PATIENT VERY RESTLESS. CONTINUES TO RIP OFF OXYGEN. MEDICATED WITH 0.5 OF IV ATIVAN. WILL CHECK EFFECTIVENESS.
--- NOTE | 2020-11-02 03:45 | NUR ---
ATIVAN EFFECTIVE. PATIENT RESTING COMFORTBALY WITH BIPAP ON. 29/08 50%. PULSE OX 95%. BED IN LOWEST POSITION,CALL LIGHT WITHIN REACH. BED ALARM ON. WILL CONTINUE TO MONITOR.
--- NOTE | 2020-11-02 04:54 | NUR ---
PATIENT RESTING COMFORTABLY WITH BIPAP ON. 29/08 50% PULSE OX 95%. NO SIGNS OF DISTRESS. BED IN LOWEST POSITION, CALL LIGHT WITHIN REACH. BED ALARM ON. WILL CONTINUE TO MONITOR.
[2020-11-02 06:41] LABS: HEMATOCRIT 29.2 % (37.0-47.0); MEAN CORPUSCULAR HGB 29.5 pg (27.0-31.0); MEAN CORPUSCULAR HGB CONC 30.1 g/dl (33.0-37.0); MEAN PLATELET VOLUME 12.2 fl (9.6-12.3); NUCLEATED RED BLOOD CELL 0.2 % (0.0-0.0); PLATELET COUNT AUTOMATED 353 10*3/uL (130-400); RED BLOOD COUNT 2.98 10*6/uL (4.10-5.10); RED CELL DISTRI WIDTH 14.1 % (0-14.5); WHITE BLOOD COUNT 15.6 10*3/uL (4.8-10.8)
--- NOTE | 2020-11-02 06:50 | NUR ---
PATIENT ASLEEP. AROUSABLE TO PAINFUL STIMULI. OPENS EYES. NO SIGNS OF DISTRESS. BIPAP ON. PULSE OX 96%. BED IN LOWEST POSITION,CALL LIGHT WITHIN REACH. BED ALARM ON. WILL CONTINUE TO MONITOR.
[2020-11-02 06:51] LABS: CREATININE 3.09 mg/dL (0.55-1.02)
[2020-11-02 07:20] LABS: BURR CELLS MODERATE; TOTAL CELLS COUNTED 100 #CELLS
[2020-11-02 07:21] LABS: PLATELET SUFFICIENCY NORMAL (NORMAL)
[2020-11-02 07:54] LABS: ABG BASE EXCESS -0.5 mmol/L (-2.0-2.0); ARTERIAL BLOOD GAS PH 7.401 (7.35-7.45)
[2020-11-02 09:00] VITALS: BP 141/48
--- NOTE | 2020-11-02 09:00 | NUR ---
Discharge plan is for patient to return to [facility] where she was currently skilled. She is HD MWF. conference planner following.
--- NOTE | 2020-11-02 09:20 | NUR ---
PHYSICAL THERAPY PT evaluation attempted. Per nursing, patient is lethargic and on BiPap. Hold PT evaluation per nursing. Thank you. Sarah Maher,PT,DPT
--- NOTE | 2020-11-02 09:21 | NUR ---
OT NOTE Occupational therapy order received and chart reviewed. Per discussion with the primary RN, patient is not appropriate for an OT evaluation. Will check back at a later date for completion of an OT eval. Thank you. Lupe Ludwig OTR/L
--- NOTE | 2020-11-02 10:48 | NUR ---
1000 AM DAILY MEDS BEING HELD AT THIS TIME. PT ON BI-PAP, LETHARGIC AT PRESENT. WILL MONITOR.
[2020-11-02 12:00] VITALS: BP 148/57
--- NOTE | 2020-11-02 12:35 | NUR ---
PHYSICAL THERAPY PT evaluation attempted. Spoke with nurse who reports no change in medical status. Patient not appropriate for skilled PT evaluation at this time. Will return again at a later date to complete PT evaluation. Thank you. Sarah Maher,PT,DPT
--- NOTE | 2020-11-02 12:44 | NUR ---
OT NOTE Occupational therapy order received and chart reviewed. Per discussion with nursing, patient is not appropriate for an OT evaluation at this time. Will return at a later date. Thank you. Lupe Ludwig, OTR/L
--- NOTE | 2020-11-02 14:10 | NUR ---
OFF FLOOR TO [facility]NE FOR [facility].
--- NOTE | 2020-11-02 17:50 | NUR ---
ATIVQAN GIVEN FOR AGITATION. WILL MONITOR.
--- NOTE | 2020-11-02 18:35 | NUR ---
PT POX IN 60'S, PT PULLED BIPAP OFF FACE. RECIEVED ORDER FOR UPPER RESTRAINTS. WILL MONITOR.
[2020-11-02 20:00] VITALS: BP 142/54
[2020-11-03] VITALS: BP 138/47
[2020-11-03 05:59] LABS: ALBUMIN 2.4 gm/dl (3.1-4.5); CREATININE 2.54 mg/dL (0.55-1.02); POTASSIUM 4.5 mmol/L (3.5-5.1); TOTAL PROTEIN 6.5 gm/dL (6.4-8.2)
[2020-11-03 06:14] LABS: HEMATOCRIT 30.1 % (37.0-47.0); MEAN CELL VOLUME 98.4 fl (81.0-99.0); MEAN CORPUSCULAR HGB 30.4 pg (27.0-31.0); MEAN CORPUSCULAR HGB CONC 30.9 g/dl (33.0-37.0); MEAN PLATELET VOLUME 12.4 fl (9.6-12.3); NUCLEATED RED BLOOD CELL 0.1 10*3/uL (0.0-0.0); NUCLEATED RED BLOOD CELL 0.4 % (0.0-0.0); PLATELET COUNT AUTOMATED 332 10*3/uL (130-400); RED BLOOD COUNT 3.06 10*6/uL (4.10-5.10); RED CELL DISTRI WIDTH 13.9 % (0-14.5); WHITE BLOOD COUNT 19.3 10*3/uL (4.8-10.8)
[2020-11-03 07:14] LABS: PLATELET SUFFICIENCY NORMAL (NORMAL); TOTAL CELLS COUNTED 100 #CELLS
[2020-11-03 08:00] VITALS: BP 173/55
--- NOTE | 2020-11-03 08:00 | NUR ---
DR. ATKINSON NOTIFIED THAT PATIENT IS RIPPING OFF BIPAP AND IS RESTLESS AT THIS TIME. REINFORCED RESTRAINT. NEW ORDERS RECIEVED.
--- NOTE | 2020-11-03 08:32 | NUR ---
PT MEDICATED WITH ONE TIME DOSE OF ATIVAN FOR INCREASED RESTLESSNESS.
[2020-11-03 09:30] LABS: ABG BASE EXCESS 1.1 mmol/L (-2.0-2.0); ARTERIAL BLOOD GAS PH 7.43 (7.35-7.45)
--- NOTE | 2020-11-03 10:23 | NUR ---
O2 INCREASED TO 60% AFTER ABG RESULTS THIS AM
[2020-11-03 12:00] VITALS: BP 154/45
[2020-11-03 13:03] LABS: ABG BASE EXCESS 0.9 mmol/L (-2.0-2.0); ARTERIAL BLOOD GAS PH 7.421 (7.35-7.45)
--- NOTE | 2020-11-03 15:07 | NUR ---
BIPAP CHANGED TO 16-[address] VELOZ.
[2020-11-03 16:00] VITALS: BP 152/50
[2020-11-03 17:13] LABS: ABG BASE EXCESS 0.6 mmol/L (-2.0-2.0); ARTERIAL BLOOD GAS PH 7.433 (7.35-7.45)
[2020-11-03 20:00] VITALS: BP 179/62
[2020-11-04] VITALS: BP 169/51
[2020-11-04 08:00] VITALS: BP 160/56
[2020-11-04 08:12] LABS: ALBUMIN 2.4 gm/dl (3.1-4.5); CREATININE 2.87 mg/dL (0.55-1.02); HEMATOCRIT 30.5 % (37.0-47.0); MEAN CELL VOLUME 96.2 fl (81.0-99.0); MEAN CORPUSCULAR HGB CONC 31.1 g/dl (33.0-37.0); MEAN PLATELET VOLUME 12.2 fl (9.6-12.3); NUCLEATED RED BLOOD CELL 0.1 10*3/uL (0.0-0.0); NUCLEATED RED BLOOD CELL 0.3 % (0.0-0.0); PLATELET COUNT AUTOMATED 331 10*3/uL (130-400); POTASSIUM 5.1 mmol/L (3.5-5.1); RED BLOOD COUNT 3.17 10*6/uL (4.10-5.10); RED CELL DISTRI WIDTH 13.9 % (0-14.5); WHITE BLOOD COUNT 19.3 10*3/uL (4.8-10.8)
[2020-11-04 08:24] LABS: PLATELET SUFFICIENCY NORMAL (NORMAL); TOTAL CELLS COUNTED 100 #CELLS
[2020-11-04 09:14] LABS: ABG BASE EXCESS -3.1 mmol/L (-2.0-2.0); ARTERIAL BLOOD GAS PH 7.387 (7.35-7.45)
--- NOTE | 2020-11-04 10:00 | NUR ---
PATIENT TAKEN OFF BIPAP AND GIVEN A DRINK OF WATER.
[2020-11-04 11:53] VITALS: BP 146/56
--- NOTE | 2020-11-04 13:00 | NUR ---
PT TAKEN OFF OF BIPAP AND PLACED ON 15L HIGH FLOW NASAL CANNULA AND DRANK SOME WATER. RESTRAINTS UNTIED AND PATIENT WAS IMMEDIATELY TRYING TO TAKE CANNULA OUT OF NOSE. ZOSYN AND PATIENT CARE GIVEN. PATIENT THEN PLACED BACK ON BIPAP AND IS RESTING COMFORTABLY.
[2020-11-04 16:00] VITALS: BP 151/60
--- NOTE | 2020-11-04 19:40 | NUR ---
Pt resting on BiPap 16/12 and FIO2 60%. Alarms on and audible.
[2020-11-04 20:00] VITALS: BP 156/61
[2020-11-05] VITALS: BP 160/62
--- NOTE | 2020-11-05 02:54 | NUR ---
Pt resting on BiPap. Alarms on and audible.
[2020-11-05 06:35] LABS: ALBUMIN 2.3 gm/dl (3.1-4.5); POTASSIUM 5.7 mmol/L (3.5-5.1)
[2020-11-05 06:56] LABS: CREATININE 3.28 mg/dL (0.55-1.02); TOTAL PROTEIN 6.4 gm/dL (6.4-8.2)
[2020-11-05 06:58] LABS: HEMATOCRIT 26.1 % (37.0-47.0); MEAN CELL VOLUME 97.8 fl (81.0-99.0); MEAN CORPUSCULAR HGB 30.3 pg (27.0-31.0); MEAN PLATELET VOLUME 12.6 fl (9.6-12.3); NUCLEATED RED BLOOD CELL 0.2 % (0.0-0.0); PLATELET COUNT AUTOMATED 325 10*3/uL (130-400); RED BLOOD COUNT 2.67 10*6/uL (4.10-5.10); RED CELL DISTRI WIDTH 14.1 % (0-14.5); WHITE BLOOD COUNT 22.2 10*3/uL (4.8-10.8)
[2020-11-05 08:00] VITALS: BP 148/57
[2020-11-05 08:47] LABS: PLATELET SUFFICIENCY NORMAL (NORMAL); TOTAL CELLS COUNTED 100 #CELLS
[2020-11-05 08:47] LABS: ABG BASE EXCESS -3.6 mmol/L (-2.0-2.0); ARTERIAL BLOOD GAS PH 7.363 (7.35-7.45)
--- NOTE | 2020-11-05 09:06 | NUR ---
Discharge plan is for patient to return to [facility] where she was currently skilled. She is HD MWF. material planner following.
[2020-11-05 12:00] VITALS: BP 153/48
--- NOTE | 2020-11-05 14:22 | NUR ---
OT NOTE Occupational therapy order received and chart reviewed. Per discussion with patient's primary RN, patient is not appropriate for OT at this time. Will hold on an OT evaluation and check back at a later date. Thank you. Lupe Ludwig OTR/L
--- NOTE | 2020-11-05 14:23 | NUR ---
PHYSICAL THERAPY PT evaluation attempted. Patient not appropriate for skilled PT evaluation per nursing. Family would like to visit the patient and consider hospice. Will hold on PT evaluation until further clarification. Thank you. Sarah Maher,PT,DPT
--- NOTE | 2020-11-05 14:32 | NUR ---
PT CURRENTLY STILL IN HEMODIALYSIS.
--- NOTE | 2020-11-05 15:57 | NUR ---
PT RETURNED FROM HEMODIALYSIS,0.8 KG OFF DURING THIS SESSION.DAUGHTER CURRENTLY DISCUSSING PLAN OF CARE WITH ANAMIKA ZHU IN [facility].
[2020-11-05 16:00] VITALS: BP 137/54
[2020-11-05 20:00] VITALS: BP 126/50
--- NOTE | 2020-11-05 20:08 | NUR ---
Pt resting on BiPap. Alarms on and audible.
[2020-11-06] VITALS: BP 142/56
[2020-11-06 06:34] LABS: HEMATOCRIT 23.8 % (37.0-47.0); MEAN CELL VOLUME 95.6 fl (81.0-99.0); MEAN CORPUSCULAR HGB 30.1 pg (27.0-31.0); MEAN PLATELET VOLUME 12.6 fl (9.6-12.3); NUCLEATED RED BLOOD CELL 0.1 10*3/uL (0.0-0.0); NUCLEATED RED BLOOD CELL 0.3 % (0.0-0.0); PLATELET COUNT AUTOMATED 315 10*3/uL (130-400); RED BLOOD COUNT 2.49 10*6/uL (4.10-5.10); RED CELL DISTRI WIDTH 14.1 % (0-14.5); WHITE BLOOD COUNT 22.1 10*3/uL (4.8-10.8)
[2020-11-06 06:36] LABS: ALBUMIN 2.2 gm/dl (3.1-4.5); CREATININE 2.58 mg/dL (0.55-1.02); POTASSIUM 4.8 mmol/L (3.5-5.1); TOTAL PROTEIN 6.1 gm/dL (6.4-8.2)
[2020-11-06 06:40] LABS: MEAN CORPUSCULAR HGB CONC 31.5 g/dl (33.0-37.0)
[2020-11-06 08:02] LABS: TOTAL CELLS COUNTED 100 #CELLS
[2020-11-06 08:03] LABS: PLATELET SUFFICIENCY NORMAL (NORMAL); POLYCHROMASIA SLIGHT
--- NOTE | 2020-11-06 08:48 | NUR ---
Discharge plan is for patient to return to [facility] where she was currently skilled. She is HD MWF. naval surface fire support planner following.
--- NOTE | 2020-11-06 09:30 | NUR ---
OT NOTE Occupational therapy order received and chart reviewed. Patient not appropriate this AM for an OT evaluation. Will check back. Thank you. Lupe Ludwig, OTR/L
[2020-11-06 11:25] LABS: ABG BASE EXCESS -0.5 mmol/L (-2.0-2.0); ARTERIAL BLOOD GAS PH 7.358 (7.35-7.45)
--- NOTE | 2020-11-06 11:28 | NUR ---
NOTIFIED DR VELOZ OF PAO2 34, SPO2 99% ON BIPAP 31/10 @ 50%.PER DR VELOZ CONTINUE TO MONITOR PT PULSE OX AND NO ABG'S UNLESS PT BEGINS TO DESAT ON BIPAP.
--- NOTE | 2020-11-06 11:35 | NUR ---
DAUGHTER UP AND SEEN PT AT BEDSIDE. DISCUSSED PLAN OF CARE WITH ANAMIKA ZHU. PT DAUGHTER'S ATTEMPTED TO SET UP TRANSFER TO [facility].AFTER SPEAKING WITH ONE CALL ANAMIKA ZHU STATED THAT PT WOULD NOT BE A TRANSFER ANDD THE SUPPOSSED ACCEPTING PHYSICIAN HAD NO IDEA OF SAID PT. [facility] REFUSED TO ACCEPT TRANSFER. ANAMIKA NOTIFIED DAUGHTER OF REFUSAL TO TRANSFER PT D/T INSTABILITY AND COVID 19.
--- NOTE | 2020-11-06 14:34 | NUR ---
REPOSITIONED FOR COMFORT.PT TOLERATED WELL. MOUTHCARE PROVIDED.
--- NOTE | 2020-11-06 14:56 | NUR ---
PHYSICAL THERAPY Attemtped to see patient today for inital evaluation however per nursing patient is not medically appropriate at this time. Will attempt to see patient at a later time when appropriate. Eva Smallwood PT DPT
--- NOTE | 2020-11-06 15:35 | NUR ---
ANAMIKA ZHU DISCUSSED PLAN OF CARE FOR URI BLANCO. [phone].AT THIS TIME PLAN OF CARE WILL CONTINUE PREVIOUSLY DISCUSS BY CONSULTING PHYSICIANS.
[2020-11-06 16:00] VITALS: BP 126/46
[2020-11-06 20:00] VITALS: BP 128/48
[2020-11-07] VITALS: BP 148/53
[2020-11-07 07:32] LABS: HEMATOCRIT 22.4 % (37.0-47.0); MEAN CELL VOLUME 93.7 fl (81.0-99.0); MEAN PLATELET VOLUME 12.8 fl (9.6-12.3); NUCLEATED RED BLOOD CELL 0.1 10*3/uL (0.0-0.0); NUCLEATED RED BLOOD CELL 0.4 % (0.0-0.0); PLATELET COUNT AUTOMATED 319 10*3/uL (130-400); RED BLOOD COUNT 2.39 10*6/uL (4.10-5.10); RED CELL DISTRI WIDTH 13.8 % (0-14.5); WHITE BLOOD COUNT 13.9 10*3/uL (4.8-10.8)
[2020-11-07 08:00] VITALS: BP 144/54
[2020-11-07 08:03] LABS: ALBUMIN 2.3 gm/dl (3.1-4.5); CREATININE 3.57 mg/dL (0.55-1.02); POTASSIUM 4.8 mmol/L (3.5-5.1); TOTAL PROTEIN 5.9 gm/dL (6.4-8.2)
[2020-11-07 08:21] LABS: PLATELET SUFFICIENCY NORMAL (NORMAL); POLYCHROMASIA SLIGHT; TOTAL CELLS COUNTED 100 #CELLS
--- NOTE | 2020-11-07 09:50 | NUR ---
OT NOTE Occupational therapy order received and chart reviewed. Per discussion with Candida Nino, patient is not appropriate for therapy. Will discharge her OT orders. No further OT indicated at this time. Thank you. Lupe Ludwig, OTR/L
--- NOTE | 2020-11-07 09:50 | NUR ---
PHYSICAL THERAPY Physical therapy order received and chart reviewed. Per discussion with Candida Nino, patient not appropriate for therapy evaluation at this time. Discharge PT orders. Thank you. Sarah Maher,PT,DPT
--- NOTE | 2020-11-07 09:59 | NUR ---
Patient updated clinicals faxed to [facility]; Patient plans to return there upon discharge when medically stable.
[2020-11-07 13:00] VITALS: BP 132/66
[2020-11-07 16:00] VITALS: BP 126/84
--- NOTE | 2020-11-07 16:32 | NUR ---
PT TRANSPORTED VIA BED BACK TO ROOM. PT SPO2 99% ON 15LHF NC. TOLERATING WELL. VITALS OBTAINED.NG PLACED IN LEFT NARES PLACEMENT VERIFIED VIA AIR BOLUS.AWAITING CXR TO VERIFY PER PROTOCOL. SPO2 99% ON 15LHF/NC.WILL CONTINUE TO MONITOR.DAUGHTER PRESENTLY AT BEDSIDE. VOICES NO OTHER NEEDS AT THIS TIME. CALL LIGHT IN REACH.
[2020-11-07 20:00] VITALS: BP 132/52
--- NOTE | 2020-11-07 21:10 | NUR ---
PT REPOSITIONED IN BED. RESP-EASY AND REGULAR. BSG-209, SEE EMAR. NG IN PLACE. CALL LIGHT IN REACH. SEE SHIFT ASSESSMENT.
[2020-11-08] VITALS: BP 125/48
--- NOTE | 2020-11-08 00:10 | NUR ---
PT REPOSITIONED IN BED. NO SOB NOTED. BIPAP IN USE. CALL LIGHT IN REACH. SEE SHIFT ASSESSMENT.
--- NOTE | 2020-11-08 01:07 | NUR ---
PATIENT PLACED ON BIPAP, WITH FULL WAREHOUSE ASSOCIATE'S FACE MASK TO COUNTERACT THE BREAKDOWN ON THE PATIENTS BRIDGE OF NOSE. TOLERATE THE MASK WELL. PATIENT MOUTH CLEANED AND MOISTEN TO HELP WITH DRY AIR.
--- NOTE | 2020-11-08 06:00 | NUR ---
PT BATHED, REPOSITIONED IN BED. PT HAD ONE ARM OUT OF RESTRAINT. NG TUBE WAS PULLED OUT. PT POSITIONED IN BED FOR NG TUBE PLACEMENT. 18FR PLACED TO R NARE. PT TOLERATED. NOTED SOME BLOOD IN TUBE AFTER PLACEMENT. AIR BOLUS +. RESTRAINTS PLACED ON PT. OXYGEN IN USE VIA NASAL CANNULA. CALL LIGHT IN REACH. BED ALARM ON.
--- NOTE | 2020-11-08 07:30 | NUR ---
INTO PT ROOM SPO2 ALARMING PT WAS ON 15 HF/NC,SPO2 86%. PLACED PT ON BIPAP / @ 40%.SPO2 CAME UP TO 96% SLOWLY. PT ANXIOUS AND CONFUSED. WILL CONTINUE TO MONITOR. NOTIFIED DR MARR OF CHANGE.
[2020-11-08 08:00] VITALS: BP 130/46
--- NOTE | 2020-11-08 08:49 | NUR ---
[facility]; at this time, patient plans on returning there when medically stable for discharge.
[2020-11-08 09:06] LABS: HEMATOCRIT 25.5 % (37.0-47.0); MEAN CELL VOLUME 95.5 fl (81.0-99.0); MEAN CORPUSCULAR HGB 30.3 pg (27.0-31.0); MEAN CORPUSCULAR HGB CONC 31.8 g/dl (33.0-37.0); MEAN PLATELET VOLUME 12.4 fl (9.6-12.3); NUCLEATED RED BLOOD CELL 0.1 % (0.0-0.0); PLATELET COUNT AUTOMATED 334 10*3/uL (130-400); RED BLOOD COUNT 2.67 10*6/uL (4.10-5.10); RED CELL DISTRI WIDTH 13.7 % (0-14.5); WHITE BLOOD COUNT 14.2 10*3/uL (4.8-10.8)
[2020-11-08 09:20] LABS: ALBUMIN 2.4 gm/dl (3.1-4.5); CREATININE 2.89 mg/dL (0.55-1.02); POTASSIUM 4.3 mmol/L (3.5-5.1); TOTAL PROTEIN 6.1 gm/dL (6.4-8.2)
[2020-11-08 09:23] LABS: OVALOCYTES FEW; PLATELET SUFFICIENCY NORMAL (NORMAL); TOTAL CELLS COUNTED 100 #CELLS
[2020-11-08 10:46] LABS: ABG BASE EXCESS 0.4 mmol/L (-2.0-2.0); ARTERIAL BLOOD GAS PH 7.421 (7.35-7.45)
[2020-11-08 12:00] VITALS: BP 119/50
[2020-11-08 16:00] VITALS: BP 116/48
[2020-11-08 20:00] VITALS: BP 121/53
[2020-11-09] VITALS: BP 128/47
--- NOTE | 2020-11-09 02:48 | NUR ---
24 HR chart check completed.
[2020-11-09 06:44] LABS: HEMATOCRIT 26.5 % (37.0-47.0); MEAN CORPUSCULAR HGB 30.1 pg (27.0-31.0); MEAN CORPUSCULAR HGB CONC 31.7 g/dl (33.0-37.0); MEAN PLATELET VOLUME 12.4 fl (9.6-12.3); NUCLEATED RED BLOOD CELL 0.1 % (0.0-0.0); PLATELET COUNT AUTOMATED 303 10*3/uL (130-400); RED BLOOD COUNT 2.79 10*6/uL (4.10-5.10); RED CELL DISTRI WIDTH 13.2 % (0-14.5); WHITE BLOOD COUNT 14.8 10*3/uL (4.8-10.8)
[2020-11-09 07:19] LABS: ALBUMIN 2.4 gm/dl (3.1-4.5); CREATININE 3.59 mg/dL (0.55-1.02); POTASSIUM 4.5 mmol/L (3.5-5.1)
--- NOTE | 2020-11-09 07:37 | NUR ---
Shift chart check completed.
[2020-11-09 08:00] VITALS: BP 126/47
[2020-11-09 08:40] LABS: POLYCHROMASIA SLIGHT; TOTAL CELLS COUNTED 100 #CELLS
[2020-11-09 08:41] LABS: PLATELET SUFFICIENCY NORMAL (NORMAL)
[2020-11-09 12:00] VITALS: BP 120/93
--- NOTE | 2020-11-09 12:45 | NUR ---
DAUGHTER CALLED AND WAS WANTING AN UPDATE. UPDATED ON POC AND DAUGHTER ASKING IF SHE COULD COME IN TO SEE HER MOM. PER ZUNILDA FERRY CAPTAIN DAUGHTER, NOEL ALLOWED TO COME IN TO VISIT.
--- NOTE | 2020-11-09 13:00 | NUR ---
SAVANAH LANDIS WITH PATIENT.
--- NOTE | 2020-11-09 15:39 | NUR ---
PER PATIENT ON BIPAP 2H AND OFF 2H. TITRATE 02 DOWN. PATIENT TAKEN OFF OF BIPAP AT THIS TIME AND PLACED ON 8LHFNC. POX 100% WILL MONITOR.
[2020-11-09 16:00] VITALS: BP 157/43
--- NOTE | 2020-11-09 16:24 | NUR ---
PATIENTS DAUGHTER IN TO SEE HER AT THIS TIME.
--- NOTE | 2020-11-09 16:30 | NUR ---
PATIENTS POX STILL 100% ON 8LHFNC TITRATED PATIENT DOWN TO 6LHFNC.
[2020-11-09 20:00] VITALS: BP 131/49
--- NOTE | 2020-11-09 20:42 | NUR ---
24 HR chart check completed.
--- NOTE | 2020-11-09 23:54 | NUR ---
PATIENT TITRATED FROM 4L HIGH FLOW TO 2L REGULAR NASAL CANNULA. PATIENT APPEARS IN NO APPARENT DISTRESS. ABLE TO FOLLOW COMMANDS. PULSE OX 99% ON 2L AND MAINTAINING
[2020-11-10] VITALS: BP 130/48
--- NOTE | 2020-11-10 00:11 | NUR ---
PATIENT OFF BIPAP AT THIS TIME. 2L NC IN USE
--- NOTE | 2020-11-10 01:34 | NUR ---
ATTEMPTED TO TITRATE PATIENT OFF OF OXYGEN. PULSE OX DROPPED TO 90%. PATIENT WAS IN NO DISTRESS BUT 2L NC REAPPLIED.
--- NOTE | 2020-11-10 07:53 | NUR ---
NOTIFIED POWER BRAKE OPERATOR OF PATIENTS WOUND TO BRIDGE OF NOSE. NOTIFIED HER THAT THE WOUND WAS NOTED BY RESPIRATORY A COUPLE DAYS AGO, BUT WAS NOT PUT INTO PATIENTS CHART.
[2020-11-10 08:00] VITALS: BP 131/45; BP 132/51
--- NOTE | 2020-11-10 08:00 | NUR ---
NOTIFIED DR. RAMSEY OF PATIENTS WOUND TO HER NOSE
--- NOTE | 2020-11-10 08:00 | NUR ---
PT RESTING IN BED. RESP EASY AND NONLABORED ON 2L HIGHFLO NC. NO DISTRESS NOTED. PT NONVERBAL, RIGHT FACIAL DROOP NOTED. PT WILL FOLLOW COMMANDS. NG TUBE INTACT AND VERIFIED WITH AIR BOLUS. SOFT WRIST RESTAINTS IN USE TO PREVENT REMOVAL OF EQUIPMENT. ISOLATION PRECAUTIONS MAINTAINED.
[2020-11-10 12:00] VITALS: BP 135/49
--- NOTE | 2020-11-10 13:30 | NUR ---
DISCUSSED PT WITH DR KINNEY FACIAL DROOP NOTED TO RIGHT SIDE OF FACE.
--- NOTE | 2020-11-10 14:00 | NUR ---
PT DAUGHTER CALLED UNIT AND UPDATED ON STATUS
--- NOTE | 2020-11-10 15:59 | NUR ---
NOTIFIED DAUGHTER THAT SHE CAN VISIT PER SUPERVISIOR.
[2020-11-10 16:00] VITALS: BP 139/47
--- NOTE | 2020-11-10 18:56 | NUR ---
DAUGHTER IN TO SEE PT. UPDATED ON STATUS/PLAN OF CARE. SHE STATES UNDERSTANDING.
--- NOTE | 2020-11-10 19:30 | NUR ---
OFF UNIT TO DIALYSIS
[2020-11-10 22:52] VITALS: BP 155/63
--- NOTE | 2020-11-10 22:53 | NUR ---
DIALYSIS CALLED REPORT 1.1 KILOS OFF, WT 70.7 KILOS
--- NOTE | 2020-11-10 23:00 | NUR ---
PT BROUGHT BACK FROM DIALYSIS. INCONTINENT OF DARK COLOR LIQUID STOOL. PT CLEANED UP AND REPOSITIONED IN BED. NG TUBE IN PLACE. CALL LIGHT IN REACH. BED ALARM ON. SEE SHIFT ASSESSMENT.
--- NOTE | 2020-11-10 23:05 | NUR ---
PT IN DIALYSIS
[2020-11-11] VITALS: BP 131/51
--- NOTE | 2020-11-11 06:00 | NUR ---
REPOSITIONED IN BED. OXYGEN IN USE. BSG-126, SEE EMAR. CALL LIGHT IN REACH. BED ALARM ON.
[2020-11-11 07:09] LABS: BASO % 0.1 % (0.0-1.0); EOS % 0.1 % (1.0-4.0); LYMPH # 1.5 10*3/uL (1.3-4.4); LYMPH % 8.5 % (27.0-41.0); MEAN CELL VOLUME 93.5 fl (81.0-99.0); MEAN CORPUSCULAR HGB 29.9 pg (27.0-31.0); MEAN CORPUSCULAR HGB CONC 31.9 g/dl (33.0-37.0); MEAN PLATELET VOLUME 12.2 fl (9.6-12.3); MONO # 0.5 10*3/uL (0.1-1.0); MONO % 2.8 % (3.0-9.0); NEUT # 15.3 10*3/uL (2.3-7.9); PLATELET COUNT AUTOMATED 268 10*3/uL (130-400); RED BLOOD COUNT 2.78 10*6/uL (4.10-5.10); RED CELL DISTRI WIDTH 13.3 % (0-14.5); WHITE BLOOD COUNT 17.4 10*3/uL (4.8-10.8)
[2020-11-11 07:23] LABS: ALBUMIN 2.3 gm/dl (3.1-4.5); CREATININE 2.49 mg/dL (0.55-1.02); POTASSIUM 3.6 mmol/L (3.5-5.1); TOTAL PROTEIN 5.8 gm/dL (6.4-8.2)
[2020-11-11 08:00] VITALS: BP 105/43
[2020-11-11 08:06] LABS: CRYPTOCOCCUS ANTIGEN Negative (Negative)
[2020-11-11 12:00] VITALS: BP 111/56
--- NOTE | 2020-11-11 15:23 | NUR ---
CONTACTED DR. ESTRELLA FOR AN ADDITONAL WRIST RESTRAINT ORDER. HE SAID HE WOULD PUT THE ORDER IN.
[2020-11-11 16:00] VITALS: BP 116/59
[2020-11-11 20:00] VITALS: BP 133/45
--- NOTE | 2020-11-11 22:32 | NUR ---
ASSUMED CARE OF PATIENT. PATIENT IS AWAKE AND ALERT TO PERSON. RESPERS ARE EASY AND REGULAR ON 2L O2 VIA NC. ASSESSMENT IS COMPLETE WITH NO S/S OF DISTRESS NOTED AT THIS TIME. NG PLACEMENT CHECKED WITH AIR BOLUS. PATIENT HAD LARGE BOWEL MOVEMENT BED BATH GIVEN, BED LINENS CHANGED, PATIENT TURNED, MOUTH CARE PROVIDED. BED IS LOW, LOCKED, ALARMED, AND CALL LIGHT IS WITHIN REACH. WILL CONTINUE TO MONITOR, SEE INTERVENTIONS.
[2020-11-12] VITALS: BP 123/54
--- NOTE | 2020-11-12 03:01 | NUR ---
PATIENT IS SLEEPING, RESPERS EASY AND REGULAR ON 2L O2 VIA NC. BED IS LOW, LOCKED, ALARMED, ANS CALL LIGHT IS WITHIN REACH. WILL CONTINUE TO MONITOR, SEE INTERVENTIONS.
[2020-11-12 08:00] VITALS: BP 128/47
--- NOTE | 2020-11-12 10:00 | NUR ---
Confirmed with [facility], patient is ok to return when medically stable for discharge.
--- NOTE | 2020-11-12 11:30 | NUR ---
NOTIFIED THAT PATIENT'S SISTER RODNEY AND WANTED HIM TO CALL HER BACK. SHE WAS UPSET REGARDING PATIENT'S NOT EATING FOR THE PAST SEVERAL DAYS. PHONE NUMBER PASSED TO
--- NOTE | 2020-11-12 11:43 | NUR ---
SPEECH PATHOLOGY Pt seen for swallow evaluation per order. Pt ID'd via wristband. Pt on 2L via NC; seated upright at 90 degrees for swallow evaluation. Pt alert, engaging in eye contact with this ARMED GUARD, but not responding to verbal stimuli from this ARMED GUARD. Unable to complete thorough CN Exam secondary to pt's difficulty following directions. This ARMED GUARD attempted to provide pt with thin liquids per straw and per cup; however, pt unable to retrieve bolus from cup or from straw, neglecting to open mouth to accept liquids. This ARMED GUARD also provided pt with pureed textured trial per spoon; pt did not attempt A-P transfer and bolus was manually removed from oral cavity secondary to pt neglecting to initiate swallow. As of this eval, pt is not appropriate for PO intake d/t deficits listed above. Will attempt tx with pt to facilitate improved oral awareness and oral phase initiation. This ARMED GUARD informed pt's nurse, Rebecca, of results of evaluation. Thank you for this referral. RADHA HANSON M.A. [facility]-ARMED GU[facility]
[2020-11-12 12:00] VITALS: BP 125/81
--- NOTE | 2020-11-12 13:41 | NUR ---
Speech eval was unable to be completed due to patient not responding to the speech therapist. Faxed updates to [facility] who then stated patient is no longer appropriate for [facility], she will be able to go to [facility] once stable for discharge, but not with an NG tube and will need PT/OT evals.
--- NOTE | 2020-11-12 13:45 | NUR ---
Occupational Therapy evaluation completed on four with full evaluation to follow. Recommend occupational therapy per plan of care and SNF upon discharge. Thank you for this referral. Lupe Ludwig OTR/L
--- NOTE | 2020-11-12 15:32 | NUR ---
Nutritional Support Services Note: Pt has not eaten the last few days. Speech therapy was unable to evaluate for swallowing difficulites. Therefore pt was given a NGT. Nepro was ordered. She requires 40cc/hr for 24 hour continuous. TF will provide pt with 960cc/1728cal daily. Ht.5'3 Wt.153#. Pt receives dialysis three times per week. Will monitor for tolerance to feedings and further advancement to peg tube. Will follow. Ariana Adan Rdn Ld
--- NOTE | 2020-11-12 15:46 | NUR ---
PHYSICAL THERAPY Physical Therapy evaluation completed on 4E with full evaluation to follow. High complexity skilled PT evaluation per chart review and evaluation, [id number]. Recommend physical therapy per plan of care and SNF upon discharge. Thank you for this referral. Sarah Maher,PT,DPT
[2020-11-12 16:00] VITALS: BP 146/48
--- NOTE | 2020-11-12 17:20 | NUR ---
NEPRO TUBE FEED STARTED AT THIS TIME @ 10CC/HR VIA NG TUBE. VERIFIED PLACEMENT WITH AIR BOLUS. PATIENT RESTING WITH NO S/S OF DISTRESS NOTED.
--- NOTE | 2020-11-12 17:48 | NUR ---
PHYSICAL THERAPY Nursing screen received and chart reviewed. PT evaluation complete and patient on PT caseload. Will continue to follow patient. Thank you. Sarah Maher,PT,DPT
--- NOTE | 2020-11-12 18:09 | NUR ---
DAUGHTER PRESENT IN ROOM VISITING PATIENT. VISITATION WAS APPROVED WITH SHIFT DIRECTOR.
[2020-11-12 20:00] VITALS: BP 134/51; BP 134/57
[2020-11-13] VITALS: BP 146/53
--- NOTE | 2020-11-13 04:16 | NUR ---
ATTEMPTED TO CALL RESIDENT REGARDING RESTRAINT ORDER WITH NO ANSWER
[2020-11-13 06:22] LABS: ALBUMIN 2.3 gm/dl (3.1-4.5); CREATININE 3.25 mg/dL (0.55-1.02); POTASSIUM 4.8 mmol/L (3.5-5.1); TOTAL PROTEIN 5.7 gm/dL (6.4-8.2)
[2020-11-13 06:45] LABS: BASO % 0.1 % (0.0-1.0); EOS # 0.1 10*3/uL (0.0-0.4); EOS % 0.3 % (1.0-4.0); HEMATOCRIT 23.3 % (37.0-47.0); LYMPH # 1.7 10*3/uL (1.3-4.4); LYMPH % 10.5 % (27.0-41.0); MEAN CORPUSCULAR HGB 30.2 pg (27.0-31.0); MEAN CORPUSCULAR HGB CONC 34.3 g/dl (33.0-37.0); MEAN PLATELET VOLUME 12.6 fl (9.6-12.3); MONO # 0.6 10*3/uL (0.1-1.0); MONO % 3.8 % (3.0-9.0); NEUT % 84.3 % (47.0-73.0); PLATELET COUNT AUTOMATED 189 10*3/uL (130-400); RED BLOOD COUNT 2.65 10*6/uL (4.10-5.10); RED CELL DISTRI WIDTH 13.2 % (0-14.5); WHITE BLOOD COUNT 16.5 10*3/uL (4.8-10.8)
[2020-11-13 07:35] LABS: MEAN CELL VOLUME 87.9 fl (81.0-99.0)
--- NOTE | 2020-11-13 07:47 | NUR ---
OT NOTE Nursing screen received. Patient was evaluated on 11/12/2020 for OT caseload. Will continue with POC as able. Thank you. Lupe Ludwig, OTR/L
[2020-11-13 08:00] VITALS: BP 139/53
--- NOTE | 2020-11-13 10:28 | NUR ---
OT NOTE Pt was seen this A.M. 1:1 for 18 minute OT session. Upon arrival pt was supine in bed. Pt identified by name and on wristband due to being non verbal throughout session. Pt presented to therapy with continuous 2L-O2 via NC and NG tube in place which both remained throughout the entire session. Pt also presented with B wrist restraints which were doffed. Pt transferred supine to sit EOB with maxA X 2 for assist with upper body and BLE's. While sitting EOB pt presented with P+ static sitting balance requiring modA to correct retrograde and R lateral LOB. Pt was able to self maintain upright posture for aprox 8 seconds before requiring assist to correct LOB. While sitting EOB pt completed simple grooming task of brushing her hair with use of LUE however still required modA to correct LOB throughout. After sitting EOB for aprox 10 minutes pt motioned to lay back down. Pt transferred sit to supine with maxA x 2. Completed PROM to R digits and positoned R hand in bed to prevent risk of contracture formation. Pt was left with call light in reach, B wrist restraints in place, and bed alarm activated for safety. Continue with rec D/C plan to SNF. Throughout the entire session airborne precautions were maintained. SHELBY Schumacher/John
--- NOTE | 2020-11-13 11:14 | NUR ---
PHYSICAL THERAPY Patient presented to therapy in supine with head of bed elevated and bed alarm on with restraints on each wrist ties top bed rail. Patient gives informed consent for treatment. Patient was identified by name and on wristband. Patient performed is on 2 liters of spO2 VIA nasal canula. Patient is non-verbal. Patient has an NG TUBE. Patient is flaccid on the R UE and LE. Patient required MAX A X 2 supine > sitting on EOB. Patient sat on EOB MOD A X 1 to keep patient upright on EOB. Patient was unable to follow commands to perform LAQs. Patient unable to follow commands to hold onto EOB to keep herself from falling backwards. Patient was transferred back to supine in bed with MAX A X 2. Patient was left in supine in bed with head of bed elevated and bed alarm. Patient's restraints tied back onto bed railing. Patient was 1:1 with this CERTIFIED HYPERBARIC TECHNOLOGIST for 22 minutes total. NII REYES CERTIFIED HYPERBARIC TECHNOLOGIST
[2020-11-13 12:00] VITALS: BP 127/55
--- NOTE | 2020-11-13 12:30 | NUR ---
PATIENT TAKEN OFF FLOOR TO DIALYSIS.
--- NOTE | 2020-11-13 13:56 | NUR ---
Patient updated clinicals faxed to [facility] for [facility] return when she is medically stable
--- NOTE | 2020-11-13 14:38 | NUR ---
SPEECH PATHOLOGY Pt seen this AM at bedside for tx session targeting therapeutic diet texture analysis nd analysis of cueing needed to improve pt swallow initiation. This NURSE CASE MANAGEMENT ID'd pt via wrist band. Pt seated upright at 90 degrees, NG tube present, on 2 L NC, and in no apparent distress. Pt more alert as compared to evaluation, and accepted small amounts of thin water via teaspoon x5. No overt s/s; however, swallow initation time was variable (7-8 s for first presentation; last two presentations required manual removal d/t pt neglecting to swallow). This NURSE CASE MANAGEMENT also presented pt with applesauce per spoon; prolonged oral phase and suspected difficulty with A-P transfer. Swallow intiated 6-7 s following bolus presentation. No overt s/s at bedside and pt O2 sats remaind at 100% throughout session; however, pt remains inappropriate for oral diet secondary to significantly delayed/absent swallow initiation in addition to significant cognitive impairments. This NURSE CASE MANAGEMENT communicated pt swallow status with OUTDOOR POWER EQUIPMENT MECHANIC, Rama Nino. Recommend pt continue [facility] dysphagia tx to improve her ability to safely consume PO intake and reduce reliance on alternative means of nutrition. This NURSE CASE MANAGEMENT was with pt for 15 minutes this date. Thank you. RADHA HANSON M.A. [facility]-NURSE CASE MANAGEMENT
[2020-11-13 16:00] VITALS: BP 113/59
[2020-11-13 20:00] VITALS: BP 130/48
[2020-11-14] VITALS: BP 116/46
--- NOTE | 2020-11-14 01:43 | NUR ---
PT TAKEN DOWN TO CT VIA BED.
--- NOTE | 2020-11-14 02:47 | NUR ---
MADE AWARE OF CT HEAD RESULTS.
--- NOTE | 2020-11-14 07:57 | NUR ---
SPOKE TO ANAMIKA ZHU REGARDING ORDER FOR WRIST RESTRAINTS. OKAY TO RENEW.
[2020-11-14 08:00] VITALS: BP 120/52
[2020-11-14 08:17] LABS: CMV QNT Positive < 200 IU/mL (Negative)
--- NOTE | 2020-11-14 09:10 | NUR ---
OFF FLOOR FOR DIALYSIS. REPORT/PT STATUS GIVEN TO DIALYSIS NURSE ROSLYN.
--- NOTE | 2020-11-14 09:57 | NUR ---
OT NOTE Attempted to see pt this A.M. for OT session and upon arrival pt was at dialysis. Will check back at a later time/date and continue with POC as able. SHELBY Schumacher/John
[2020-11-14 10:09] LABS: BASO % 0.1 % (0.0-1.0); EOS # 0.3 10*3/uL (0.0-0.4); EOS % 1.7 % (1.0-4.0); HEMATOCRIT 23.6 % (37.0-47.0); LYMPH # 1.8 10*3/uL (1.3-4.4); LYMPH % 12.1 % (27.0-41.0); MEAN CORPUSCULAR HGB 30.4 pg (27.0-31.0); MEAN CORPUSCULAR HGB CONC 32.2 g/dl (33.0-37.0); MEAN PLATELET VOLUME 12.4 fl (9.6-12.3); MONO # 0.3 10*3/uL (0.1-1.0); MONO % 2.3 % (3.0-9.0); NEUT # 12.6 10*3/uL (2.3-7.9); NEUT % 83.1 % (47.0-73.0); NUCLEATED RED BLOOD CELL 0.1 % (0.0-0.0); PLATELET COUNT AUTOMATED 149 10*3/uL (130-400); RED CELL DISTRI WIDTH 13.6 % (0-14.5); WHITE BLOOD COUNT 15.1 10*3/uL (4.8-10.8)
[2020-11-14 10:15] LABS: MEAN CELL VOLUME 94.4 fl (81.0-99.0)
[2020-11-14 10:29] LABS: CREATININE 1.64 mg/dL (0.55-1.02); POTASSIUM 2.8 mmol/L (3.5-5.1)
--- NOTE | 2020-11-14 10:56 | NUR ---
Discussed with benja, patient returning or going to [facility]. They stated they cannot accept patient with an NG tube/on hospice unless family can private pay since she doesn't have medicaid and they cannot accept patient without a diet or inability to consume food/water and no peg tube.
--- NOTE | 2020-11-14 11:08 | NUR ---
SPEECH PATHOLOGY Pt seen at bedside this AM for therapy session targeting ongoing therapeutic diet texture analsyis to facilitate pt's ability to return to PO diet. 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 This PURCHASING OFFICER ID'd pt via wristband. Pt seated upright in bed, 2L via NC, and O2 sats at 98-99% throughout session. Following oral care, this PURCHASING OFFICER provided pt with ice chips per spoon. Pt presented with significant anterior loss secondary to poor labial closure on R. Pt did initiate swallow in all opportunities; however, swallow was significantly delayed (e.g. >10-15+ s following bolus presentation). No s/s noted at bedside; however, pt remains high risk for aspiration d/t evolving subacute infarct. At this time, recommend pt remain NPO. Pt currently unable to participate in instrumental swallow evaluation at this facility secondary to COVID+ status; altered mental status and pt lethargy also negatively impact pt's ability to participate. This PURCHASING OFFICER communicated results of today's tx session with GREENKEEPER, Rama Nino; she verbalized understanding. Pt seen for 15 minutes; RN, Anastasia, came to take pt to dialysis. RADHA HANSON M.A. [facility]-PURCHASING OFFICER
--- NOTE | 2020-11-14 11:29 | NUR ---
PHYSICAL THERAPY Patient is in Kidney dialysis at 9:00 AM. Will check back with the patient this afternoon. NII REYES ENROLLMENT CONSULTANT
--- NOTE | 2020-11-14 13:10 | NUR ---
BACK TO FLOOR FROM DIALYSIS. VSS.
--- NOTE | 2020-11-14 13:12 | NUR ---
MULTIPLE WOUNDS NOTED. NURSING CAR CHASER ZUNILDA NOTIFIED. ANAMIKA ZHU NOTIFIED. ALSO SPOKE WITH KARAN WOUND CARE NURSE REGARDING THIS TOPIC.
--- NOTE | 2020-11-14 13:23 | NUR ---
OT NOTE Pt was seen this P.M. 1:1 for 25 minute OT session. Upon arrival pt was supine in bed. Pt identified by name and on wristband due to being non verbal throughout session. Pt presented to therapy with continuous 2L-O2 via NC, NG tube, and B wrist restraints which were doffed for session. While supine in bed completed PROM to RUE over shoulder, elbow, wrist, and digit joints over all planes for 2 X 10 to increase and restore maximum functional use. Pt was moving her LUE over all planes AROM. Bed mobility completed rolling side to side for increased I and while nursing staff completed bed change requiring maxA X 2 to complete rolling side to side. Pt was left supine in bed with call light in hand, bed rails up with B wrist restraints donned, and bed alarm activated for safety. Continue with rec D/C plan to SNF. Throughout entire session airborne precautions were maintained. SHELBY Schumacher/John
--- NOTE | 2020-11-14 14:50 | NUR ---
PHYSICAL THERAPY Patiet presented to therapy in supine with head of bed elevated and bed alarm on with bed rails up. Patient is non verbal. Patient's Nurse, MARILOU TONG went in the room with therapists. Patient's RN RAN was assisted with rolling patient to the left and right in bed, so nurses could change patients bed linens and depends. Patient was MAX A X 2 to roll to each side and was able to maintain the side-lying with the Lower knee flexed as a kick-stand. Patient was unable to sit EOB. Patient is very weak and has a blank stare. Patient is not responsive to verbal commands. Patient LEs were exercised with heel slides , SLRs and hip abduction, ALL with AAROM. Patient was moved up to head of bed with sheet with MAX A X 2. Patient was left with head of bed elevated, bed alarm on and MARILOU TONG present with patient. Patient was 1:1 wit hthis INSIDE SOLAR SALES CONSULTANT for 16 minutes total. SHELBY Mcmahan was present as witness to this treatment. NII REYES INSIDE SOLAR SALES CONSULTANT
[2020-11-14 16:00] VITALS: BP 120/48
[2020-11-14 20:00] VITALS: BP 120/38
[2020-11-15] VITALS: BP 105/39
[2020-11-15 04:00] VITALS: BP 126/43
[2020-11-15 06:27] LABS: BASO % 0.1 % (0.0-1.0); EOS # 0.5 10*3/uL (0.0-0.4); EOS % 2.6 % (1.0-4.0); HEMATOCRIT 22.1 % (37.0-47.0); LYMPH # 1.5 10*3/uL (1.3-4.4); LYMPH % 8.5 % (27.0-41.0); MEAN CELL VOLUME 94.4 fl (81.0-99.0); MEAN CORPUSCULAR HGB 29.9 pg (27.0-31.0); MEAN CORPUSCULAR HGB CONC 31.7 g/dl (33.0-37.0); MEAN PLATELET VOLUME 12.9 fl (9.6-12.3); MONO % 5.2 % (3.0-9.0); NEUT % 82.8 % (47.0-73.0); NUCLEATED RED BLOOD CELL 0.2 % (0.0-0.0); PLATELET COUNT AUTOMATED 136 10*3/uL (130-400); RED BLOOD COUNT 2.34 10*6/uL (4.10-5.10); RED CELL DISTRI WIDTH 13.6 % (0-14.5); WHITE BLOOD COUNT 18.2 10*3/uL (4.8-10.8)
--- NOTE | 2020-11-15 06:35 | NUR ---
WOUND CARE HERE TO SEE CLIENT
[2020-11-15 06:55] LABS: ALBUMIN 2.2 gm/dl (3.1-4.5); CREATININE 2.55 mg/dL (0.55-1.02); POTASSIUM 2.9 mmol/L (3.5-5.1); TOTAL PROTEIN 5.2 gm/dL (6.4-8.2)
--- NOTE | 2020-11-15 07:47 | NUR ---
Patient updated clinicals faxed to [facility] for review. Facility is stating they cannot accept patient with an NG nor can they accept patient with inability to eat/swallow and no source of nutrition such as a peg tube unless she is on hospice. Patient does not have medicaid so if she came under hospice services she would have to private pay.
[2020-11-15 08:00] VITALS: BP 118/33
--- NOTE | 2020-11-15 09:10 | NUR ---
NOTIFIED ANAMIKA KING OF LAB WORK TODAY. SAID SHE WOULD WAIT FOR NEPHROs DIRECTION.
--- NOTE | 2020-11-15 10:15 | NUR ---
OT NOTE Pt was seen this A.M. 1:1 for 20 minute OT session. Upon arrival pt was supine in bed. Pt identified by name and on wristband due to being non verbal. Pt presented to therapy with continuous 2L-O2 via NC and NG tube which both remained in place throughout the entire session. While supine in bed completed PROM to B shoulders, elbows, wrists, and digit joints over all planes for 1 X 15 to increase and restore maximum functional use. Bed mobility completed for repositioning in bed with maxA X 2. There she was left with call light in reach, bed rails up, and bed alarm activated for safety. Continue with rec D/C plan to SNF. Throughout entire session airborne precautions were maintained. SHELBY Schumacher/John
--- NOTE | 2020-11-15 10:40 | NUR ---
Left message at [phone] for FERNANDO Nino to discuss wound care recommendations. Call placed to Hope RN caring for patient to let her know that message was left for FERNANDO Nino for wound care recommendations.
--- NOTE | 2020-11-15 11:14 | NUR ---
PHYSICAL THERAPY Patien presented to therapy in supine with head od bed elevated at 30 degrees or >. Bed alarm is on. Patient gives informed consent for treatment. Patient was identified by name and on wristband. Patient is on 2 liters of spO2 via nasal canula. Patient performed AAROM to the Celestine LEs in all planes of movement in supine for strengthening the LEs in order to improve patient's functional mobility. Patient completed heel slides, hip abduction, heel/toe raises, and SLRs x 15 each AAROM. Patient is very weak and flaccid on the R SIDE. Patient was left in supine in bed with call light within reach, bed alarm on and head of bed elevated with 2 liters of spO2. Patient was 1:1 with this FARM MECHANIC for 20 minutes total. NII REYES FARM MECHANIC
--- NOTE | 2020-11-15 11:37 | NUR ---
SPEECH PATHOLOGY Attempted tx with pt this date. This CONFERENCE SERVICES DIRECTOR presented to pt's bedside and adjusted HOB to 90 degrees. Attempted oral care to prepare pt for ice chip presentations; however, pt orally defensive and turning head away from this CONFERENCE SERVICES DIRECTOR. Pt more lethargic than in previous sessions. Pt remains high risk for aspiration at this time. Recommend pt remain NPO. This CONFERENCE SERVICES DIRECTOR spoke to DIRECTOR OF SAFETY AND SECURITYCandida regarding pt status and expressed that pt is currently not appropriate for skilled interventions. Recommend pt be d/c'd from ST services with potential for re-consult should pt status improve. DIRECTOR OF SAFETY AND SECURITY verbalized understanding. Time spent with pt insufficient to bill for tx. Thank you. RADHA HANSON M.A. [facility]-CONFERENCE SERVICES DIRECTOR
--- NOTE | 2020-11-15 12:33 | NUR ---
Received Call From Rama Nino Nurse Practitioner. Requesting Hospice Consult. Call Placed to Pt. daughter Liss and Spoke with her and Offered Choice of Hospice Companies. Pt. daughter chose [facility] for Referral. Referral faxed to [facility] [phone].
--- NOTE | 2020-11-15 12:57 | NUR ---
PHYSICAL THERAPY CO-SIGN I approve of the Phyical Therapy notes written above. Eva Smallwood PT DPT
--- NOTE | 2020-11-15 12:59 | NUR ---
OCCUPATIONAL THERAPY CO-SIGN I approve of the Occupational Therapy notes written above. JAGUAR JIMÉNEZ, OTR/L
--- NOTE | 2020-11-15 13:33 | NUR ---
[facility] Referral sent today. They are unable to see Pt. until Thursday. Pt. daughter is refusing [facility] and Wants her Mother to go home with Hospice. Pt. Lives in [place] and there are no other options at this point for Hospice except [facility]. Oracle Database Administrator to Follow. Spoke with Rama Nino Nurse Practitioner and is aware and has spoken with the Pt. daughter.
[2020-11-15 16:30] VITALS: BP 124/47
--- NOTE | 2020-11-15 16:55 | NUR ---
TURNED, REPOSITIONED. TOLERATED WELL. DGTR NOEL IN ROOM GRACE VISITATION. VSS. NG REMAINS IN PLACE WITH 2L NC ON.
[2020-11-15 20:00] VITALS: BP 149/48
--- NOTE | 2020-11-15 20:20 | NUR ---
PT HAVING DARK TARRY STOOLS PER AM SHIFT AND PT HAD ANOTHER EPISODE JUST NOW. MADE AWARE OF THIS WELL HGB 7.0. DISCUSSED 7500 UNITS OF HEPARIN ORDERED BID. INSTRUCTED TO HOLD HEPARIN AND GET FECAL OCCULT WITH NEXT BM.
[2020-11-16] VITALS: BP 128/33
--- NOTE | 2020-11-16 02:30 | NUR ---
TYLENOL GIVEN THROUGH NG TUBE FOR RECTAL TEMP 100.0. WILL MONITOR EFFECTIVENESS. CALL LIGHT IN REACH.
--- NOTE | 2020-11-16 04:09 | NUR ---
PT ASLEEP IN BED. RESPIRATIONS EASY. NO S/S OF DISTERSS NOTED. WILL MONITOR. CALL LIGHT IN REACH. BED ALARM INTACT.
[2020-11-16 07:39] LABS: HEMATOCRIT 21.6 % (37.0-47.0); MEAN CELL VOLUME 96.9 fl (81.0-99.0); MEAN PLATELET VOLUME 12.5 fl (9.6-12.3); NUCLEATED RED BLOOD CELL 0.2 % (0.0-0.0); PLATELET COUNT AUTOMATED 157 10*3/uL (130-400); RED BLOOD COUNT 2.23 10*6/uL (4.10-5.10); RED CELL DISTRI WIDTH 13.8 % (0-14.5); WHITE BLOOD COUNT 17.8 10*3/uL (4.8-10.8)
--- NOTE | 2020-11-16 07:51 | NUR ---
PATIENT TAKEN TO DIALYSIS PER ORDER.
[2020-11-16 08:00] VITALS: BP 121/44
[2020-11-16 08:00] LABS: PLATELET SUFFICIENCY NORMAL (NORMAL); TOTAL CELLS COUNTED 100 #CELLS
[2020-11-16 08:01] LABS: ALBUMIN 2.1 gm/dl (3.1-4.5); CREATININE 3.71 mg/dL (0.55-1.02); POTASSIUM 3.6 mmol/L (3.5-5.1); TOTAL PROTEIN 5.4 gm/dL (6.4-8.2)
--- NOTE | 2020-11-16 08:02 | NUR ---
THIS NURSE SPOKE WITH PATIENT'S SON URI (FRANCIS) REGARDING BLOOD TRANSFUSION. FRANCIS DOES NOT WANT BLOOD TRANSFUSION TO BE GIVEN. THIS NURSE WILL NOTIFIY ANAMIKA ZHU.
--- NOTE | 2020-11-16 08:05 | NUR ---
ANAMIKA ZHU NOTIFIED REGARDING PATIENT'S POA REFUSAL FOR BLOOD TRANSFUSION. DIALYSIS NURSE MADE AWARE.
--- NOTE | 2020-11-16 11:10 | NUR ---
PATIENT RETURNED TO ROOM FROM SCHEDULED DIALYSIS.
[2020-11-16 12:00] VITALS: BP 111/40
--- NOTE | 2020-11-16 14:28 | NUR ---
DAUGHTER IN TO SEE PATIENT.
[2020-11-16 16:00] VITALS: BP 118/51
[2020-11-16 20:00] VITALS: BP 128/40
--- NOTE | 2020-11-16 20:18 | NUR ---
24 HR chart check completed.
--- NOTE | 2020-11-16 21:00 | NUR ---
HOB ELEVATED. PATIENT OFFERS NO VERBAL INTERACTION NOR FOLLOWS COMMANDS. RESPIRATIONS MOIST. LUNGS DIMINISHED. PULSE OX 98% 2.5L WITH CONT PULSE OX MAINTAINED. NG MAINTAINED TO RIGHT NARE, CLAMPED. BILATERAL HEEL PROTECTORS IN PLACE. CALL LIGHT WITHIN REACH. NO VOICED COMPLAINTS. BED ALARM MAINTAINED FOR SAFETY
[2020-11-17] VITALS: BP 115/40
--- NOTE | 2020-11-17 | NUR ---
RESTING WITH EYES CLOSED. RESPIRATIONS SHALLOW, MOIST. VSS. PULSE OX 100% 2.5L. CALL LIGHT WITHIN REACH. BED ALARM MAINTAINED FOR SAFETY
--- NOTE | 2020-11-17 06:00 | NUR ---
CONDITION REMAINS POOR. O2 IN USE AT 2L WITH CONT PULSE OX MAINTAINED. CALL LIGHT WITHIN REACH. BED ALARM MAINTAINED FOR SAFETY
[2020-11-17 08:00] VITALS: BP 137/58
--- NOTE | 2020-11-17 09:03 | NUR ---
ROCKET ENGINE COMPONENT MECHANIC CONTACTED [facility] TO SEE WHAT TIME THEY WOULD BE ARRIVING TODAY TO SEE THIS PATIENT. ROCKET ENGINE COMPONENT MECHANIC LEFT A MESSAGE ASKING FOR A RETURN CALL. CASE MANAGEMENT TO FOLLOW.
--- NOTE | 2020-11-17 11:03 | NUR ---
RUSH SEATER ATTEMPTED TO CALL [facility] AGAIN ON BOTH [phone] AND [phone] AND RECEIVED VOICE MAIL BOTH TIMES. RUSH SEATER WILL CONTINUE TO REACH OUT TO [facility].
--- NOTE | 2020-11-17 11:16 | NUR ---
IT APPLICATIONS ANALYST RECEIVED CALL BACK FROM [facility] THEY ARE PLANNING ON MEETING WITH THE FAMILY BETWEEN 11/16:30PM. IT APPLICATIONS ANALYST NOTIFIED RANJAN ESQUIVEL AND SENT KRYPTOS TEXT TO DR. KINNEY.
[2020-11-17 12:00] VITALS: BP 139/47
--- NOTE | 2020-11-17 12:37 | NUR ---
TYLENOL GIVEN VIA NG RT NARE PER DAUGHTER'S REQUEST. PT IS RUBBING FOREHEAD IT SEEMS TO HURT. WILL MONITOR.
--- NOTE | 2020-11-17 15:02 | NUR ---
[facility] Discharge instructions reviewed with patient/family. Patient receptive and verbalizes understanding. Follow-up care arranged. Written instructions given to patient/family. FARIBA PACHECO
== END 2020-11-17 15:10 | disposition hospice, home (50) | DRG 871 ==
LOC: ED 14:22 → 4E 16:10 → EDHOLD 16:10 → 4E 17:25
PROVIDERS: Family Medicine; Internal Medicine; Internal Medicine Critical Care Medicine; Physical Therapist; Registered Nurse; Student in an Organized Health Care Education/Training Program; ADMIT Family Medicine; ATTEND Family Medicine
PROC: 5A09557 Assistance with Respiratory Ventilation, Greater than 96 Consecutive Hours, Continuous Positive Airway Pressure (ICD-10-PCS; principal; 2020-11-01)
PROC: XW033E5 Introduction of Remdesivir Anti-infective into Peripheral Vein, Percutaneous Approach, New Technology Group 5 (ICD-10-PCS; 2020-11-02)
PROC: 5A1D70Z Performance of Urinary Filtration, Intermittent, Less than 6 Hours Per Day (ICD-10-PCS; 2020-11-02)
PROC: 5A1D70Z Performance of Urinary Filtration, Intermittent, Less than 6 Hours Per Day (ICD-10-PCS; 2020-11-05)
PROC: 5A1D70Z Performance of Urinary Filtration, Intermittent, Less than 6 Hours Per Day (ICD-10-PCS; 2020-11-07)
PROC: 5A09357 Assistance with Respiratory Ventilation, Less than 24 Consecutive Hours, Continuous Positive Airway Pressure (ICD-10-PCS; 2020-11-08)
PROC: 5A09357 Assistance with Respiratory Ventilation, Less than 24 Consecutive Hours, Continuous Positive Airway Pressure (ICD-10-PCS; 2020-11-09)
PROC: 5A0935A Assistance with Respiratory Ventilation, Less than 24 Consecutive Hours, High Flow/Velocity Cannula (ICD-10-PCS; 2020-11-10)
PROC: 5A1D70Z Performance of Urinary Filtration, Intermittent, Less than 6 Hours Per Day (ICD-10-PCS; 2020-11-10)
PROC: 5A1D70Z Performance of Urinary Filtration, Intermittent, Less than 6 Hours Per Day (ICD-10-PCS; 2020-11-13)
PROC: 5A1D70Z Performance of Urinary Filtration, Intermittent, Less than 6 Hours Per Day (ICD-10-PCS; 2020-11-14)
PROC: 5A1D70Z Performance of Urinary Filtration, Intermittent, Less than 6 Hours Per Day (ICD-10-PCS; 2020-11-16)
DX: A41.89 Other specified sepsis (principal); U07.1 COVID-19; J96.01 Acute respiratory failure with hypoxia; N18.6 End stage renal disease; J12.82 Pneumonia due to coronavirus disease 2019; E87.1 Hypo-osmolality and hyponatremia; I25.810 Atherosclerosis of coronary artery bypass graft(s) without angina pectoris; E44.0 Moderate protein-calorie malnutrition; D68.59 Other primary thrombophilia; I13.2 Hypertensive heart and chronic kidney disease with heart failure and with stage 5 chronic kidney disease, or end stage renal disease; I69.351 Hemiplegia and hemiparesis following cerebral infarction affecting right dominant side; Z94.4 Liver transplant status; E66.9 Obesity, unspecified; I50.9 Heart failure, unspecified; Z66 Do not resuscitate; E11.65 Type 2 diabetes mellitus with hyperglycemia; R62.7 Adult failure to thrive; D64.9 Anemia, unspecified; E83.51 Hypocalcemia; E11.22 Type 2 diabetes mellitus with diabetic chronic kidney disease; E03.9 Hypothyroidism, unspecified; E11.49 Type 2 diabetes mellitus with other diabetic neurological complication; R65.20 Severe sepsis without septic shock; Z51.5 Encounter for palliative care; Z79.4 Long term (current) use of insulin; Z99.2 Dependence on renal dialysis; Z68.29 Body mass index [BMI] 29.0-29.9, adult; Z91.041 Radiographic dye allergy status; Z79.899 Other long term (current) drug therapy; Z95.1 Presence of aortocoronary bypass graft; Z79.82 Long term (current) use of aspirin; Z79.1 Long term (current) use of non-steroidal anti-inflammatories (NSAID); Z89.431 Acquired absence of right foot

== ENCOUNTER 2020-11-17 15:11 | Inpatient (IN) | payer OTHER, MEDICARE ==
[~2020-11-17] VITALS: Ht 160 cm; Wt 69.0 kg
[~2020-11-17 15:11] MED LIST changes: +ACETAMINOPHEN325 M2 PO; +ATENOLOL25 MG PO; +DECADRON6 M1 PO; +ELIQUIS5 M1 PO; +EUTHYROX112 MCG PO; +HUMALOG100 UNIT/2 SC; +LANTUS SOL100 UNIT/1 SC; +MIRALAX17 GM PO; +PLAVIX75 M1 PO; +PRAVACHOL20 MG PO; +PREGABALIN150 MG PO; +ROCALTROL0.5 MC1 PO; +SENNA8.6 MG PO; +TACROLIMUS1 MG PO
[2020-11-17 16:00] VITALS: BP 112/36
[2020-11-17 20:00] VITALS: BP 131/41
[2020-11-18] VITALS: BP 131/52
--- NOTE | 2020-11-18 03:10 | NUR ---
24HR CHART CHECK COMPLETED
--- NOTE | 2020-11-18 04:23 | NUR ---
SLEEPING. SEEMS TO BE COMFORTABLE AT THIS TIME. NO SXS OF DISTRESS NOTED. CALL LIGHT IN REACH. BED ALARM MAINTAINED.
--- NOTE | 2020-11-18 05:05 | NUR ---
PERICARE PROVIDED, PT TURNED AND REPOSITIONED IN BED. SEEMS TEARFUL AT THIS TIME. LEVSIN GIVEN FOR DISCOMFORT. WILL MONITOR FOR EFFECTIVENESS. CALL LIGHT IN REACH. BED ALARM MAINTAINED.
--- NOTE | 2020-11-18 06:01 | NUR ---
LEVSIN SEEMS TO BE EFFECTIVE. PT SEEMS LESS TEARFUL AT THIS TIME AND MORE COMFORTABLE. CALL LIGHT IN REACH. BED ALARM ON.
[2020-11-18 08:00] VITALS: BP 112/46
--- NOTE | 2020-11-18 08:00 | NUR ---
24 HR chart check completed.
--- NOTE | 2020-11-18 09:00 | NUR ---
EYES OPEN BUT UNRESPONSIVE. RESPIRATIONS EASY, SHALLOW. LUNGS DIMINISHED. PULSE OX 99% 2L, CONT PULSE OX MAINTAINED. NG REMAINED TO RIGHT NARE. HEEL PROTECTORS IN PLACE. CALL LIGHT WITHIN REACH. BED ALARM MAINTAINED
[2020-11-18 12:00] VITALS: BP 110/48
--- NOTE | 2020-11-18 12:30 | NUR ---
DR KINNEY HERE TO ASSESS PATIENT
--- NOTE | 2020-11-18 14:00 | NUR ---
NG REMOVED PER DR KINNEY'S ORDER
--- NOTE | 2020-11-18 14:30 | NUR ---
PATIENT RESTING. NO ACUTE DISTRESS NOTED. NG AND CONT PULSE OX D/C'D
--- NOTE | 2020-11-18 14:45 | NUR ---
2 FAMILY MEMBERS HERE TO VISIT
[2020-11-18 16:00] VITALS: BP 138/49
--- NOTE | 2020-11-18 19:25 | NUR ---
FAMILY RETURNED TO VISIT
--- NOTE | 2020-11-18 22:52 | NUR ---
FAMILY LEFT. RESPIRATIONS MOIST. ATROPINE PROVIDED PER PRN ORDER
[2020-11-19] VITALS: BP 132/72
--- NOTE | 2020-11-19 | NUR ---
PATIENT RESTING WITH NO S/S OF DISTRESS. BED IN LOWEST POSITION, CALL LIGHT IN REACH
--- NOTE | 2020-11-19 07:00 | NUR ---
ARRIVED ON SHIFT, REPORT RECEIVED FROM OFFOING NURSE, ASSUMED CARE OF PATIENT.
--- NOTE | 2020-11-19 07:45 | NUR ---
INTRODUCED SELF TO PATIENT BED IN LOW POSITION, WHEEL LOCKS ENGAGED, SIDE RAILS UP X 2 FOR TURNING AND REPOSITIONING, BED ALARM ON, CALL LIGHT WITHIN REACH, MINIMALLY RESPONSIVE, NO APPARENT NEEDS AT THIS TIME, WHITE BOARD UPDATED.
[2020-11-19 08:00] VITALS: BP 118/42
--- NOTE | 2020-11-19 08:58 | NUR ---
Shift chart check completed.
[2020-11-19 12:00] VITALS: BP 118/44
[2020-11-19 16:00] VITALS: BP 124/47
--- NOTE | 2020-11-19 19:10 | NUR ---
REPORT RECEIVED. PT LYING IN BED. NO COMPLAINTS
[2020-11-19 20:00] VITALS: BP 126/57
--- NOTE | 2020-11-19 21:00 | NUR ---
PT RESTING IN BED WITH EYES CLOSED. RESPIRATIONS EASY
--- NOTE | 2020-11-19 22:00 | NUR ---
PT RESTING. RESPIRATIONS EASY.
[2020-11-20] VITALS: BP 126/57
--- NOTE | 2020-11-20 | NUR ---
IN TO GIVE MORPHINE. PT RESTING. CALL LIGHT IN REACH
--- NOTE | 2020-11-20 01:00 | NUR ---
PT RESTING COMFORTABLY
--- NOTE | 2020-11-20 03:00 | NUR ---
PT RESTING AT THIS TIME. RESPIRATIONS EASY.
--- NOTE | 2020-11-20 06:00 | NUR ---
PT RESTING COMFORTABLY
--- NOTE | 2020-11-20 07:00 | NUR ---
ARRIVED ON SHIFT, REPORT RECEIVED FROM OFFGOING NURSE, ASSUMED CARE OF PATIENT.
--- NOTE | 2020-11-20 07:51 | NUR ---
INTRODUCED SELF TO PATIENT, BED IN LOW POSITION, WHEEL LOCKS ENGAGED, BED ALARM ON SIDE RAILS UP X 2 FOR TURNING AND REPOSITIONING, PT IS MINIMALLY RESPONSIVE, CALL LIGHT WITHIN REACH, NO APPARENT NEEDS AT THIS TIME. WHITE BOARD UPDATED.
--- NOTE | 2020-11-20 07:54 | NUR ---
Shift chart check completed.
[2020-11-20 08:00] VITALS: BP 118/45
[2020-11-20 08:30] VITALS: BP 80/40
--- NOTE | 2020-11-20 10:30 | NUR ---
PATIENT HAS INCREASED PULMONARY CONGESTION. MEDICATED WITH ATROPINE DROPS ORDERED PRN SL.
--- NOTE | 2020-11-20 11:30 | NUR ---
ATROPINE DROPS INEFFECTIVE, NO CHANGE IN PULMONARY CONGESTION, DR. KINNEY NOTIFIED.
[2020-11-20 16:00] VITALS: BP 121/47
--- NOTE | 2020-11-20 19:15 | NUR ---
PATIENT RESTING COMFORTABLY WITH DAUGHTER AND GRANDDAUGHTER AT BEDSIDE.
[2020-11-21] VITALS: BP 116/56
--- NOTE | 2020-11-21 | NUR ---
PATIENT CLEANED UP AND REPOSITIONED. RESTING COMFORTABLY WITH NO S/S OF DISTRESS
--- NOTE | 2020-11-21 06:01 | NUR ---
BED BATH GIVEN AND PATIENT REPOSITIONED. RESTING COMFORTABLY
--- NOTE | 2020-11-21 07:00 | NUR ---
ARRIVED ON SHIFT, REPORT RECEIVED FROM OFFGOING NURSE, ASSUMED CARE OF PATIENT.
--- NOTE | 2020-11-21 07:20 | NUR ---
PATIENT UNREPONSIVE, TO VERBAL TACTILE AND VERBAL STIMULI, NOISY RESPIRATIONS, BED IN LOW POSITION WITH WHEEL LOCKS ENGAGED, NO NEEDS AT THIS TIME, WHITE BOARD UPDATED,
[2020-11-21 08:00] VITALS: BP 90/45
--- NOTE | 2020-11-21 10:40 | NUR ---
CALLED IN TO PATIENTS ROOM BY FAMILY, PATIENTS RESPIRATIONS HAVE CEASED, NO PULSE, ADVISED FAMILY THAT PATIENT HAD PASSED, PER FAMILY OTHER FAMILY TO COME.
--- NOTE | 2020-11-21 10:45 | NUR ---
NOTIFIED PROPERTY MANAGER MARTA THAT PATIENT HAD PASSED.
--- NOTE | 2020-11-21 13:30 | NUR ---
FAMILY HAS COME, ALL PERSONAL ITEMS REMOVED FROM PATIENTS ROOM AND SIGNED FOR BY PATIENTS DAUGHTER, [facility] CONDOLONCES GIVEN TO FAMILY, ALL FAMILY HAS LEFT AND OKAY RECEIVED TO SEND REMAINS TO HOSPITAL.
--- NOTE | 2020-11-21 14:00 | NUR ---
BODY PREPPED PP ON COVID PATIENTS, CALL PLACED TO [facility], THEY REQUESTED PATIENTS REMAIN [place] [facility]
--- NOTE | 2020-11-21 14:28 | NUR ---
SECURITY UP TO GET PATIENTS REMAINS PER MOTUARY REQUEST.
== END 2020-11-21 10:40 | disposition expired | DRG 871 ==
LOC: 4E 15:11
PROVIDERS: ADMIT Family Medicine; ATTEND Family Medicine
DX: A41.9 Sepsis, unspecified organism (principal); J12.82 Pneumonia due to coronavirus disease 2019; J96.01 Acute respiratory failure with hypoxia; I63.9 Cerebral infarction, unspecified; N18.6 End stage renal disease; U07.1 COVID-19; E44.0 Moderate protein-calorie malnutrition; D68.59 Other primary thrombophilia; E87.1 Hypo-osmolality and hyponatremia; Z51.5 Encounter for palliative care; R73.9 Hyperglycemia, unspecified; D64.9 Anemia, unspecified; E83.51 Hypocalcemia; Z95.1 Presence of aortocoronary bypass graft; Z68.29 Body mass index [BMI] 29.0-29.9, adult